=== PATIENT | male | born 1955 | race Caucasian/White ===

== ENCOUNTER → 2016-09-16 | Outpatient (CLI) | payer OTHER ==
[~2016-09-16] MED LIST: ALBU0.63 INH; ASPI81TA85 PO; FLOM5CAP PO; LINZ290C PO; LIPI20TA PO; MELO7.5T6 PO; NAPR500T2 PO; OMEP40CA2 PO; ZOFR20TA PO
--- NOTE | 2016-09-17 02:12 | REP ---
Clinical: Chest pain. Technique: PA and lateral. Comparison: 03/13/2015. Findings: Mediastinum and cardiac silhouette are stable. Lung varghese demonstrate stable chronic-appearing changes. No focal consolidation. No effusion or pneumothorax. Skeletal structures intact. Impression: Chronic stable changes. No acute cardiopulmonary process identified. Signed by Oj Villafana MD 09/17/2016 02:03 A
== END ==
LOC: M LAB 13:21
PROVIDERS: ATTEND Family Medicine
DX: J98.4 Other disorders of lung (principal)

== ENCOUNTER → 2016-09-19 | Outpatient (CLI) | payer OTHER ==
[~2016-09-19] VITALS: Ht 188 cm; Wt 93.0 kg
[~2016-09-19] MED LIST changes: +NS 1,000 ML IV SCH; +PROPOFOL 200 MG/20 ML VIAL As Ordered ONE
--- NOTE | 2016-09-19 09:25 | ROOR ---
Patient Name: Orville Mejia Procedure Date: 09/19/2016 9:13 AM Date of : 1955 Age: 61 Room: [facility] Gender: Male Note Status: Finalized Procedure: Upper GI endoscopy Indications: Abdominal pain, Weight loss Providers: Keith ALCAZAR MD Referring MD: Gregory Baez MD Requesting Provider: Medicines: Monitored Anesthesia Care Complications: No immediate complications. Procedure: Pre-Anesthesia Assessment: - The heart rate, respiratory rate, oxygen saturations, blood pressure, adequacy of pulmonary ventilation, and response to care were monitored throughout the procedure. The Endoscope was introduced through the mouth, and advanced to the second part of duodenum. The upper GI endoscopy was accomplished without difficulty. The patient tolerated the procedure well. Findings: Small Hiatal Hernia. The esophagus was normal. The stomach was normal. The examined duodenum was normal. Impression: - Small Hiatal Hernia. - Normal esophagus. - Normal stomach. - Normal examined duodenum. - No specimens collected. Recommendation: - Observe patient's clinical course. Keith Alcazar MD Keith ALCAZAR MD 09/19/2016 9:25:32 AM This report has been signed electronically. Number of Addenda: 0 Note Initiated On: 09/19/2016 9:13 AM Estimated Blood Loss: Estimated blood loss: none.
--- NOTE | 2016-09-19 09:57 | ROOR ---
Patient Name: Orville Mejia Procedure Date: 09/19/2016 9:15 AM Date of : 1955 Age: 61 Room: [facility] Gender: Male Note Status: Finalized Procedure: Colonoscopy Indications: Hematochezia Providers: Keith VALENZUELA MD Referring MD: Gregory Baez MD Requesting Provider: Medicines: Monitored Anesthesia Care Complications: No immediate complications. Procedure: Pre-Anesthesia Assessment: - The heart rate, respiratory rate, oxygen saturations, blood pressure, adequacy of pulmonary ventilation, and response to care were monitored throughout the procedure. The Colonoscope was introduced through the anus and advanced to the cecum, identified by appendiceal orifice and ileocecal valve. The colonoscopy was performed without difficulty. The patient tolerated the procedure well. The quality of the bowel preparation was good. Findings: The perianal and digital rectal examinations were normal. (Exam: Complete, Prep: Good or Excellent.) A 10 mm polyp was found in the proximal ascending colon. The polyp was carpet-like. The polyp was removed with a piecemeal technique using a cold snare. Polyp resection was incomplete. The resected tissue was retrieved. Coagulation for tissue destruction using argon plasma at 0.8 liters/minute and 20 sales was successful. Internal hemorrhoids were found during retroflexion. The hemorrhoids were moderate. The exam was otherwise without abnormality on direct and retroflexion views. Impression: - (Exam: Complete, Prep: Good or Excellent.) - One 10 mm polyp in the proximal ascending colon, removed piecemeal using a cold snare. Incomplete resection. Resected tissue retrieved. Treated with argon plasma coagulation (APC). - Internal hemorrhoids. - The examination was otherwise normal on direct and retroflexion views. Recommendation: - Await pathology results. - If the pathology report reveals adenomatous tissue, then repeat the colonoscopy to review the polypectomy site in 1 year. Keith Valenzuela MD Keith VALENZUELA MD 09/19/2016 9:57:01 AM This report has been signed electronically. Number of Addenda: 0 Note Initiated On: 09/19/2016 9:15 AM Estimated Blood Loss: Estimated blood loss: none.
[2016-09-19 10:20] VITALS: BP 105/78
== END | disposition home or self-care (01) ==
LOC: M OPP 07:35
PROVIDERS: ATTEND Internal Medicine Gastroenterology
DX: D12.2 Benign neoplasm of ascending colon (principal); R10.9 Unspecified abdominal pain; K44.9 Diaphragmatic hernia without obstruction or gangrene; E78.00 Pure hypercholesterolemia, unspecified; R12 Heartburn; D64.9 Anemia, unspecified; J44.9 Chronic obstructive pulmonary disease, unspecified; N28.1 Cyst of kidney, acquired; Z87.891 Personal history of nicotine dependence; F10.21 Alcohol dependence, in remission; Z79.82 Long term (current) use of aspirin; Z79.899 Other long term (current) drug therapy; Z88.0 Allergy status to penicillin; Z91.041 Radiographic dye allergy status

== ENCOUNTER → 2016-11-20 | Outpatient (CLI) | payer OTHER ==
[~2016-11-20] MED LIST changes: -NS 1,000 ML IV SCH; -PROPOFOL 200 MG/20 ML VIAL As Ordered ONE
== END ==
LOC: M LAB 12:47
PROVIDERS: ATTEND Family Medicine
DX: Z12.5 Encounter for screening for malignant neoplasm of prostate (principal); N40.0 Benign prostatic hyperplasia without lower urinary tract symptoms
CPT/HCPCS: 36415; G0103

== ENCOUNTER → 2016-12-25 | Outpatient (REF) | payer OTHER | LOC: M LAB REF 17:08 | PROVIDERS: ATTEND Surgery | DX: D17.1 Benign lipomatous neoplasm of skin and subcutaneous tissue of trunk (principal) ==

== ENCOUNTER 2017-03-31 14:43 | Emergency (ER) | payer OTHER ==
[~2017-03-31] VITALS: Ht 188 cm; Wt 93.1 kg
[~2017-03-31 14:43] MED LIST changes: -MELO7.5T6 PO; +MELO7.5T7 PO; -NAPR500T2 PO; +NAPR500T3 PO
[2017-03-31 17:43] LABS: BASO % 0.7 % (0.0-1.0); EOS # 0.1 K/mm3 (0.0-0.50); EOS % 1.1 % (0.0-3.0); LARGE UNSTAINED CELL # 0.2 K/mm3 (0.0-0.4); LARGE UNSTAINED CELL % 1.8 % (0.0-4.0); LYMPH # 2.6 K/mm3 (1.5-4.5); LYMPH % 32.9 % (24.0-44.0); MEAN CORPUSCULAR HEMOGLOBIN 31.3 pg (27.0-33.0); MEAN CORPUSCULAR HGB CONC 34.5 g/dl (32.0-36.5); MEAN CORPUSCULAR VOLUME 90.9 fl (80.0-96.0); MONO # 0.4 K/mm3 (0.0-0.8); MONO % 5.3 % (0.0-5.0); NEUTROPHILS # 4.6 K/mm3 (1.8-7.7); NEUTROPHILS % 58.1 % (36.0-66.0); PLATELET COUNT, AUTOMATED 157 k/mm3 (150-450); RED CELL DISTRIBUTION WIDTH 12.8 % (11.5-14.5); WHITE BLOOD COUNT 7.9 K/mm3 (4.0-10.0)
--- NOTE | 2017-03-31 17:50 | REP ---
Chest one-view HISTORY: Chest pain Comparison: 09/16/2016 The lungs are clear. The heart is normal in size. The pulmonary vasculature is normal in appearance. Impression: No acute disease. Signed by Noah Greenwood MD 03/31/2017 05:41 P
[2017-03-31 17:51] LABS: ALBUMIN 3.5 GM/DL (3.2-5.2); ALKALINE PHOSPHATASE 49 U/L (45-117); ALT/SGPT 22 U/L (12-78); ANION GAP 7 MEQ/L (8-16); AST/SGOT 17 U/L (15-37); BILIRUBIN,DIRECT 0.1 MG/DL (0.0-0.2); BILIRUBIN,TOTAL 0.4 MG/DL (0.2-1.0); BLOOD UREA NITROGEN 11 MG/DL (7-18); CALCIUM LEVEL 8.5 MG/DL (8.8-10.2); CARBON DIOXIDE LEVEL 27 MEQ/L (21-32); CHLORIDE LEVEL 110 MEQ/L (98-107); CREATININE FOR GFR 0.85 MG/DL (0.70-1.30); GLOMERULAR FILTRATION RATE > 60.0 (>49); GLUCOSE, FASTING 91 MG/DL (80-110); POTASSIUM SERUM 3.7 MEQ/L (3.5-5.1); SODIUM LEVEL 144 MEQ/L (136-145); TOTAL PROTEIN 6.2 GM/DL (6.4-8.2)
--- NOTE | 2017-03-31 20:00 | REPUSA ---
CLINICAL HISTORY: Abdominal pain. TECHNIQUE: Realtime sonographic images were obtained in multiple projections. COMMENTS: The liver is of normal size, parenchyma demonstrates normal echogenicity. 2.5 cm right hepatic lobe c yst is seen. No discrete hepatic mass is seen. There is no intra or extrahepatic biliary ductal dilatation. CBD measures 5 mm. The gallbladder is ph ysiologically distended without evidence of calculi. The gallbladder wall is not thickened and there is no pericholecystic fluid. There is no abdominal ascites. The right kidney measures 10.8 cm, free of hydronephrosis. 5.7 x 3.6 cm cyst is noted in the upper p ole. IMPRESSION: Hepatic and renal cysts. No acute pathology. Thank you for your kind referral of this patient.
[2017-03-31 21:02] VITALS: BP 125/72
--- NOTE | 2017-04-01 10:35 | ECGEPIP ---
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
== END 2017-03-31 21:10 | disposition home or self-care (01) ==
LOC: M ED 14:43
DX: K85.90 Acute pancreatitis without necrosis or infection, unspecified (principal); I10 Essential (primary) hypertension; E78.5 Hyperlipidemia, unspecified; J44.9 Chronic obstructive pulmonary disease, unspecified; F17.210 Nicotine dependence, cigarettes, uncomplicated; Z79.82 Long term (current) use of aspirin; Z91.041 Radiographic dye allergy status; Z88.0 Allergy status to penicillin

== ENCOUNTER → 2017-04-04 | Outpatient (CLI) | payer OTHER ==
[2017-04-04 15:26] LABS: ALBUMIN 3.9 GM/DL (3.2-5.2); ALBUMIN/GLOBULIN RATIO 1.18 (1.00-1.93); ALKALINE PHOSPHATASE 56 U/L (45-117); ALT/SGPT 25 U/L (12-78); AMYLASE 173 U/L (25-115); ANION GAP 5 MEQ/L (8-16); AST/SGOT 18 U/L (15-37); BILIRUBIN,TOTAL 0.5 MG/DL (0.2-1.0); BLOOD UREA NITROGEN 11 MG/DL (7-18); CALCIUM LEVEL 9.3 MG/DL (8.8-10.2); CARBON DIOXIDE LEVEL 31 MEQ/L (21-32); CHLORIDE LEVEL 105 MEQ/L (98-107); CREATININE FOR GFR 1.01 MG/DL (0.70-1.30); GLOMERULAR FILTRATION RATE > 60.0 (>49); GLUCOSE, FASTING 79 MG/DL (80-110); POTASSIUM SERUM 4.4 MEQ/L (3.5-5.1); SODIUM LEVEL 141 MEQ/L (136-145); TOTAL PROTEIN 7.2 GM/DL (6.4-8.2)
[2017-04-04 15:30] LABS: BASO % 0.6 % (0.0-1.0); EOS # 0.1 K/mm3 (0.0-0.50); EOS % 0.7 % (0.0-3.0); LARGE UNSTAINED CELL # 0.2 K/mm3 (0.0-0.4); LARGE UNSTAINED CELL % 2.3 % (0.0-4.0); LYMPH # 3.2 K/mm3 (1.5-4.5); MEAN CORPUSCULAR HGB CONC 34.1 g/dl (32.0-36.5); MEAN CORPUSCULAR VOLUME 90.7 fl (80.0-96.0); MONO # 0.5 K/mm3 (0.0-0.8); MONO % 6.3 % (0.0-5.0); NEUTROPHILS # 4.5 K/mm3 (1.8-7.7); NEUTROPHILS % 54.2 % (36.0-66.0); PLATELET COUNT, AUTOMATED 148 k/mm3 (150-450); RED CELL DISTRIBUTION WIDTH 12.9 % (11.5-14.5); WHITE BLOOD COUNT 8.4 K/mm3 (4.0-10.0)
== END ==
LOC: M LAB 14:23
PROVIDERS: ATTEND Physician Assistant Medical
DX: R10.10 Upper abdominal pain, unspecified (principal)

== ENCOUNTER → 2017-05-01 | Outpatient (CLI) | payer OTHER ==
--- NOTE | 2017-05-01 13:39 | REP ---
MRCP EXAMINATION WITHOUT CONTRAST: HISTORY: Upper abdominal pain. History pancreatitis. Comparison MRI study August 16, 2016. TECHNIQUE: Axial T2 HASTE and coronal T2 TRUE FISP images are acquired. In addition, an MRCP acquisition is acquired and maximum intensity projection images are generated and reviewed rotationally. Source coronal images are also reviewed. MRCP FINDINGS: There are scattered small benign hepatic cysts again noted. The largest of these is near the gallbladder measuring 3.3 cm in greatest diameter. There is a 4.6 cm simple cyst in the upper pole of the right kidney. A smaller subcentimeter cyst is also seen in the right kidney. There is a 2.5 cm T2 hyperintense lesion which appears to project in the lower chest and mediastinum to the right of midline. This is of uncertain significance and is only seen on maximal intensity projection images. It is beyond the field of view of the axial and coronal scans. The common bile duct is normal in caliber. Pancreatic duct is normal in caliber. No stricture or choledocholithiasis is seen. The visualized intrahepatic ducts are not dilated. IMPRESSION: 1. No evidence of biliary ductal stricture dilation or filling defect. 2. Benign hepatic cysts. Some of these are somewhat larger than on prior study. 3. T2 hyperintense 2.5 cm structure projects in the right chest or mediastinum. Uncertain significance. Consider chest CT study. Signed by Jonny Kc MD 05/01/2017 03:59 P
== END ==
LOC: M RAD 11:04
PROVIDERS: ATTEND Physician Assistant Medical
DX: R10.10 Upper abdominal pain, unspecified (principal); R11.0 Nausea; R74.8 Abnormal levels of other serum enzymes

== ENCOUNTER → 2017-05-15 | Outpatient (CLI) | payer OTHER ==
--- NOTE | 2017-05-15 10:41 | REP ---
CT of the chest without IV contrast: Comparisons are the portable chest dated 03/31/2079, PA and lateral chest of 09/16/2016. The patient had recent CT abdomen pelvis dated 08/13/2015 and MRI of the abdomen dated 08/16/2016. There are no infiltrates or effusions. There are no masses or nodules. There are small bulla scattered throughout the lung varghese bilaterally. There is no mediastinal or axillary adenopathy. In the absence of IV contrast the study is insensitive for hilar adenopathy. The thoracic aorta is unremarkable. Cardiac size normal. There is no pericardial effusion. The upper abdomen. There are occasional cysts in the liver in the visualized upper poles of the kidneys, similar to the comparison CT and MRI. Impression: Scattered bulla throughout the lung varghese compatible with bullous emphysema. Hepatic and renal cysts as described. Otherwise, negative CT study of the chest. Signed by Ramon Gannon MD 05/15/2017 10:33 A
== END ==
LOC: M RAD 08:45
PROVIDERS: ATTEND Physician Assistant Medical
DX: R93.3 Abnormal findings on diagnostic imaging of other parts of digestive tract (principal); N28.1 Cyst of kidney, acquired; K76.89 Other specified diseases of liver

== ENCOUNTER 2017-09-02 08:56 | Day surgery (SDC) | payer OTHER ==
[2017-09-02] MEDS: NS 1,000 ML IV (09:00)
[2017-09-02] MEDS ORDERED: fentaNYL 100 MCG/2 ML INJECTION (J3010) As Ordered ×2 (09:22→09:55)
[2017-09-02] MEDS ORDERED: MIDAZOLAM INJ 2 MG/2 ML VIAL (J2250) As Ordered ×4 (09:22→09:44)
== END 2017-09-02 11:01 | disposition home or self-care (01) ==
LOC: M OPP 08:56
DX: Z09 Encounter for follow-up examination after completed treatment for conditions other than malignant neoplasm (principal); D12.5 Benign neoplasm of sigmoid colon; Z86.010 Personal history of colon polyps; Z98.890 Other specified postprocedural states; E78.00 Pure hypercholesterolemia, unspecified; K21.9 Gastro-esophageal reflux disease without esophagitis; J44.9 Chronic obstructive pulmonary disease, unspecified; N28.1 Cyst of kidney, acquired; F17.210 Nicotine dependence, cigarettes, uncomplicated; K85.90 Acute pancreatitis without necrosis or infection, unspecified; Z79.82 Long term (current) use of aspirin; Z79.899 Other long term (current) drug therapy; Z91.041 Radiographic dye allergy status; Z88.0 Allergy status to penicillin; Z88.8 Allergy status to other drugs, medicaments and biological substances
CPT/HCPCS: 45385

== ENCOUNTER → 2018-03-25 | Outpatient (CLI) | payer OTHER ==
[2018-03-25 11:17] LABS: BASO % 0.4 % (0.0-1.0); EOS # 0.1 10^3/uL (0.0-0.50); EOS % 0.9 % (0.0-3.0); HEMATOCRIT 40.7 % (42.0-52.0); HEMOGLOBIN 13.8 g/dl (13.5-17.5); IMMATURE GRANULOCYTE % 0.5 % (0-3.0); LYMPH # 3.3 10^3/uL (1.5-4.5); LYMPH % 33.8 % (24.0-44.0); MEAN CORPUSCULAR HEMOGLOBIN 30.5 pg (27.0-33.0); MEAN CORPUSCULAR HGB CONC 33.9 g/dl (32.0-36.5); MEAN CORPUSCULAR VOLUME 89.8 fl (80.0-96.0); MONO # 0.7 10^3/uL (0.0-0.8); MONO % 7.3 % (0.0-5.0); NEUTROPHILS # 5.6 10^3/uL (1.8-7.7); NEUTROPHILS % 57.1 % (36.0-66.0); PLATELET COUNT, AUTOMATED 150 10^3/uL (150-450); RED BLOOD COUNT 4.53 10^6/uL (4.30-6.10); RED CELL DISTRIBUTION WIDTH 12.4 % (11.5-14.5); WHITE BLOOD COUNT 9.9 10^3/uL (4.0-10.0)
[2018-03-25 11:29] LABS: ALBUMIN 3.5 GM/DL (3.2-5.2); ALBUMIN/GLOBULIN RATIO 1.17 (1.00-1.93); ALKALINE PHOSPHATASE 50 U/L (45-117); ALT/SGPT 22 U/L (12-78); AMYLASE 53 U/L (25-115); ANION GAP 8 MEQ/L (8-16); AST/SGOT 17 U/L (7-37); BILIRUBIN,TOTAL 0.4 MG/DL (0.2-1.0); BLOOD UREA NITROGEN 12 MG/DL (7-18); CALCIUM LEVEL 8.4 MG/DL (8.8-10.2); CARBON DIOXIDE LEVEL 28 MEQ/L (21-32); CHLORIDE LEVEL 108 MEQ/L (98-107); CREATININE FOR GFR 0.89 MG/DL (0.70-1.30); GLOMERULAR FILTRATION RATE > 60.0 (>49); GLUCOSE, FASTING 90 MG/DL (70-100); LIPASE 231 U/L (73-393); POTASSIUM SERUM 3.9 MEQ/L (3.5-5.1); SODIUM LEVEL 144 MEQ/L (136-145); TOTAL PROTEIN 6.5 GM/DL (6.4-8.2)
== END ==
LOC: M LAB 10:44
DX: R10.13 Epigastric pain (principal)
CPT/HCPCS: 82150

== ENCOUNTER → 2018-06-25 | Outpatient (CLI) | payer OTHER ==
[2018-06-25 15:09] LABS: CHOLESTEROL LEVEL 114 MG/DL (<200); CHOLESTEROL RISK RATIO 3.677 (<5); HDL CHOLESTEROL 31 MG/DL (>40); LDL CHOLESTEROL 61 MG/DL (<100); NON-HDL-C 83 MG/DL; PSA SCREENING 2.43 NG/ML (< 4.0); TRIGLYCERIDES LEVEL 112 MG/DL (<150)
== END ==
LOC: M LAB 13:54
DX: Z00.00 Encounter for general adult medical examination without abnormal findings (principal)
CPT/HCPCS: 80061

== ENCOUNTER → 2018-07-13 | Outpatient (REF) | payer OTHER ==
[2018-07-13 19:13] LABS: HEMATOCRIT 41.6 % (42.0-52.0); HEMOGLOBIN 13.6 g/dl (13.5-17.5); MEAN CORPUSCULAR HEMOGLOBIN 29.4 pg (27.0-33.0); MEAN CORPUSCULAR HGB CONC 32.7 g/dl (32.0-36.5); MEAN CORPUSCULAR VOLUME 89.8 fl (80.0-96.0); PLATELET COUNT, AUTOMATED 163 10^3/uL (150-450); RED BLOOD COUNT 4.63 10^6/uL (4.30-6.10); RED CELL DISTRIBUTION WIDTH 12.6 % (11.5-14.5); WHITE BLOOD COUNT 7.5 10^3/uL (4.0-10.0)
== END ==
LOC: M SFHCPLAZ 15:06
DX: R19.5 Other fecal abnormalities (principal)
CPT/HCPCS: 85027

== ENCOUNTER → 2018-07-21 | Outpatient (CLI) | payer OTHER ==
[2018-07-21 10:27] LABS: ANION GAP 7 MEQ/L (8-16); BLOOD UREA NITROGEN 18 MG/DL (7-18); CALCIUM LEVEL 8.6 MG/DL (8.8-10.2); CARBON DIOXIDE LEVEL 26 MEQ/L (21-32); CHLORIDE LEVEL 108 MEQ/L (98-107); CREATININE FOR GFR 1.13 MG/DL (0.70-1.30); GLOMERULAR FILTRATION RATE > 60.0 (>49); GLUCOSE, FASTING 92 MG/DL (70-100); POTASSIUM SERUM 4.1 MEQ/L (3.5-5.1); SODIUM LEVEL 141 MEQ/L (136-145)
== END ==
LOC: M LAB 09:25
DX: T39.391A Poisoning by other nonsteroidal anti-inflammatory drugs [NSAID], accidental (unintentional), initial encounter (principal)
CPT/HCPCS: 72052

== ENCOUNTER → 2018-12-22 | Outpatient (CLI) | payer OTHER ==
[~2018-12-22] MED LIST changes: +FLOM0.4C39 PO; -FLOM5CAP PO; +NAPR-885 PO; -NAPR500T3 PO; +RANI15TA PO; -ZOFR20TA PO; +ZOFR4TAB16 PO
[2018-12-22 16:23] LABS: HEMATOCRIT 39.4 % (42.0-52.0); HEMOGLOBIN 13.7 g/dl (13.5-17.5); MEAN CORPUSCULAR HEMOGLOBIN 30.6 pg (27.0-33.0); MEAN CORPUSCULAR HGB CONC 34.8 g/dl (32.0-36.5); MEAN CORPUSCULAR VOLUME 88.1 fl (80.0-96.0); PLATELET COUNT, AUTOMATED 162 10^3/uL (150-450); RED BLOOD COUNT 4.47 10^6/uL (4.30-6.10); WHITE BLOOD COUNT 8.7 10^3/uL (4.0-10.0)
[2018-12-22 16:49] LABS: ALBUMIN 3.9 GM/DL (3.2-5.2); ALT/SGPT 31 U/L (12-78); AMYLASE 142 U/L (25-115); BILIRUBIN,TOTAL 0.5 MG/DL (0.2-1.0); BLOOD UREA NITROGEN 14 MG/DL (7-18); CALCIUM LEVEL 8.8 MG/DL (8.8-10.2); CARBON DIOXIDE LEVEL 28 MEQ/L (21-32); CHLORIDE LEVEL 106 MEQ/L (98-107); CREATININE FOR GFR 1.12 MG/DL (0.70-1.30); GLOMERULAR FILTRATION RATE > 60.0 (>49); GLUCOSE, FASTING 95 MG/DL (70-100); LIPASE 1360 U/L (73-393); POTASSIUM SERUM 3.8 MEQ/L (3.5-5.1); SODIUM LEVEL 140 MEQ/L (136-145); TOTAL PROTEIN 6.8 GM/DL (6.4-8.2)
== END ==
LOC: M LAB 15:51
PROVIDERS: ATTEND Physician Assistant Medical
DX: Q44.6 Cystic disease of liver (principal); R12 Heartburn; E74.8 Other specified disorders of carbohydrate metabolism

== ENCOUNTER → 2019-01-01 | Outpatient (CLI) | payer OTHER ==
[~2019-01-01] MED LIST changes: +PROHANCE 279.3MG/ML 15ML VIAL (A9576) As Ordered ONE; +PROHANCE 279.3MG/ML 5ML VIAL (A9576) As Ordered ONE
--- NOTE | 2019-01-01 15:33 | REP ---
MRI ABDOMEN WITH AND WITHOUT CONTRAST: TECHNIQUE: Multiple sequences obtained in the axial and coronal planes prior to and following the intravenous administration of 19 mL ProHance. Comparison made with prior study 08/16/2016. The liver again demonstrates multiple cysts which appear essentially unchanged. There are cysts of varying sizes scattered throughout the liver, about eight to ten cysts are visualized. The largest is inferior in the right lobe measuring 2.9 cm in diameter just posterior to the gallbladder. The gallbladder itself demonstrates no filling defect. There is no gallbladder wall edema. There is no biliary dilatation. Spleen is enlarged with a length of 16.1 cm. This has increased since prior study when it was 13.9 cm. Adrenals demonstrate no nodule. The pancreas demonstrates no mass. There is no pancreatic duct dilatation. There is no hydronephrosis of either kidney. A dominant cyst in the upper pole of the right kidney has slightly increased since the prior study. This is benign with no internal enhancement. It measures 4.7 cm in diameter. Previously it measured about 4 cm in diameter. In the medial upper pole right kidney there is a 7 mm cyst. In the lower pole of the right kidney there is a complex cyst, likely hemorrhagic or proteinaceous, measuring 1 cm in diameter. In the left kidney mid aspect medially there is a nonenhancing complex cyst measuring 2 cm in diameter. This has mildly increased in size since prior study when it was 1.2 cm. Again, this is likely proteinaceous or hemorrhagic. There is no significant enhancement. Exophytic cyst is seen of the lower pole of the left kidney posteriorly measuring 1.2 cm. No adenopathy is seen in the visualized abdomen and there is no evidence of free fluid. IMPRESSION: Multiple stable liver cysts. The largest is in the inferior right lobe measuring about 2.9 to 3 cm in maximum diameter. Increased mild splenomegaly with the length of the spleen approximately 16.1 cm. Bilateral renal cysts as discussed above have mildly increased in size since prior study. There is one complex cyst in each kidney which appears to be hemorrhagic or proteinaceous, but these do not demonstrate suspicious enhancement. Electronically Signed by Ramon Vickers MD 01/06/2019 11:43 A
== END ==
LOC: M RAD 09:26
PROVIDERS: ATTEND Physician Assistant Medical
DX: Q44.6 Cystic disease of liver (principal); R16.1 Splenomegaly, not elsewhere classified; N28.1 Cyst of kidney, acquired
CPT/HCPCS: 74183; A9576

== ENCOUNTER → 2019-05-04 | Outpatient (CLI) | payer OTHER ==
[~2019-05-04] MED LIST changes: -PROHANCE 279.3MG/ML 15ML VIAL (A9576) As Ordered ONE; -PROHANCE 279.3MG/ML 5ML VIAL (A9576) As Ordered ONE
[2019-05-04 15:13] LABS: HEMATOCRIT 43.5 % (42.0-52.0); HEMOGLOBIN 14.7 g/dl (13.5-17.5); MEAN CORPUSCULAR HGB CONC 33.8 g/dl (32.0-36.5); MEAN CORPUSCULAR VOLUME 91.8 fl (80.0-96.0); PLATELET COUNT, AUTOMATED 162 10^3/uL (150-450); RED BLOOD COUNT 4.74 10^6/uL (4.30-6.10); WHITE BLOOD COUNT 9.1 10^3/uL (4.0-10.0)
[2019-05-04 15:35] LABS: MONO SCRN NEGATIVE (NEGATIVE)
[2019-05-04 15:38] LABS: ALBUMIN 4.1 GM/DL (3.2-5.2); ALT/SGPT 29 U/L (12-78); AMYLASE 58 U/L (25-115); BILIRUBIN,TOTAL 0.4 MG/DL (0.2-1.0); BLOOD UREA NITROGEN 11 MG/DL (7-18); CALCIUM LEVEL 9.5 MG/DL (8.8-10.2); CARBON DIOXIDE LEVEL 30 MEQ/L (21-32); CHLORIDE LEVEL 108 MEQ/L (98-107); CREATININE FOR GFR 0.98 MG/DL (0.70-1.30); GLOMERULAR FILTRATION RATE > 60.0 (>49); GLUCOSE, FASTING 93 MG/DL (70-100); LIPASE 171 U/L (73-393); POTASSIUM SERUM 4.3 MEQ/L (3.5-5.1); SODIUM LEVEL 143 MEQ/L (136-145); TOTAL PROTEIN 7.3 GM/DL (6.4-8.2)
== END ==
LOC: M LAB 14:37
PROVIDERS: ATTEND Internal Medicine Gastroenterology
DX: K21.9 Gastro-esophageal reflux disease without esophagitis (principal)

== ENCOUNTER → 2019-05-07 | Outpatient (CLI) | payer OTHER ==
[~2019-05-07] MED LIST changes: +E-Z-GAS II EFFERVESCENT PACKET (SODIUM BICARB./CITRIC ACID/SIMETHICONE) As Ordered ONE; +E-Z-HD 98% w/w 340GM SUSP BTL As Ordered ONE; +E-Z-PAQUE 96% w/w SUSP 176GM BTL As Ordered ONE
--- NOTE | 2019-05-07 16:37 | REP ---
UPPER GI AIR CONTRAST AND SMALL BOWEL FOLLOW THROUGH The procedure was performed under the direct supervision of Dr. Kc. The images were reviewed with Dr. Kc The medical sales associate film shows no organomegaly or pathological masses. The intestinal gas pattern is non-specific. Liquid barium and gas producing crystals were given in the erect position as well as liquid barium in the prone oblique position in order to perform a double contrast upper GI examination. Additionally liquid barium was given at the end of the examination in order to perform a small bowel follow through. The oral and pharyngeal stages of deglutition are unremarkable. Esophageal transport is prompt and efficient and there is no esophagitis, stricture or mucosal ring. There is a small sliding type hiatal hernia. Gastroesophageal reflux is not demonstrated on this examination. Note is made of surgical sutures in the left lung apex. The stomach izquierdo are normally outlined . The rugal folds are smooth and regular. There is no gastritis neoplasm or ulcer disease. In the duodenum there are thickened folds which likely represents duodenitis. There is no vernon ulcer identified. The visualized portion of the proximal small bowel appears normal in course and caliber. The barium column was followed through the small bowel to the level of the terminal ileum. Small bowel transit time is approximately 60 minutes . During fluoroscopy gentle palpation shows all loops are freely movable and pliable. There are no fixed or angulated loops. The small bowel mucosal pattern is normal in course and caliber. There is no transition to suggest a partial small-bowel obstruction. Spot filming of the terminal ileum shows it to be unremarkable. Impression: There are thickened folds in the duodenum which likely represents duodenitis. There is no vernon ulcer identified. Otherwise, unremarkable double contrast upper GI and small bowel follow-through examination. 3.6 minutes of fluoro time was utilized for this procedure. Electronically Signed by MARCELLUS Vaughan 05/07/2019 04:17 P Electronically Signed by Jonny Kc MD 05/07/2019 04:28 P
== END ==
LOC: M RAD 07:59
DX: K21.9 Gastro-esophageal reflux disease without esophagitis (principal)

== ENCOUNTER → 2019-05-19 | Outpatient (CLI) | payer OTHER ==
[~2019-05-19] MED LIST changes: -E-Z-GAS II EFFERVESCENT PACKET (SODIUM BICARB./CITRIC ACID/SIMETHICONE) As Ordered ONE; -E-Z-HD 98% w/w 340GM SUSP BTL As Ordered ONE; -E-Z-PAQUE 96% w/w SUSP 176GM BTL As Ordered ONE
[2019-05-19 15:45] LABS: BASO # 0.1 10^3/uL (0.0-0.2); BASO % 0.5 % (0.0-1.0); EOS # 0.1 10^3/uL (0.0-0.5); EOS % 0.6 % (0.0-3.0); HEMATOCRIT 40.9 % (42.0-52.0); HEMOGLOBIN 13.7 g/dl (13.5-17.5); LYMPH # 2.6 10^3/uL (1.5-5.0); LYMPH % 27.4 % (24.0-44.0); MEAN CORPUSCULAR HEMOGLOBIN 30.2 pg (27.0-33.0); MEAN CORPUSCULAR HGB CONC 33.5 g/dl (32.0-36.5); MEAN CORPUSCULAR VOLUME 90.3 fl (80.0-96.0); MONO # 0.6 10^3/uL (0.0-0.8); MONO % 6.4 % (0.0-5.0); NEUTROPHILS # 6.2 10^3/uL (1.5-8.5); NEUTROPHILS % 64.7 % (36.0-66.0); PLATELET COUNT, AUTOMATED 165 10^3/uL (150-450); RED BLOOD COUNT 4.53 10^6/uL (4.30-6.10); WHITE BLOOD COUNT 9.6 10^3/uL (4.0-10.0)
[2019-05-19 16:01] LABS: ALBUMIN 3.6 GM/DL (3.2-5.2); ALT/SGPT 25 U/L (12-78); BILIRUBIN,TOTAL 0.3 MG/DL (0.2-1.0); BLOOD UREA NITROGEN 15 MG/DL (7-18); CALCIUM LEVEL 8.9 MG/DL (8.8-10.2); CARBON DIOXIDE LEVEL 28 MEQ/L (21-32); CHLORIDE LEVEL 106 MEQ/L (98-107); CREATININE FOR GFR 1.03 MG/DL (0.70-1.30); GLOMERULAR FILTRATION RATE > 60.0 (>49); GLUCOSE, FASTING 95 MG/DL (70-100); POTASSIUM SERUM 4.5 MEQ/L (3.5-5.1); SODIUM LEVEL 141 MEQ/L (136-145); TOTAL PROTEIN 6.6 GM/DL (6.4-8.2)
--- NOTE | 2019-05-20 21:12 | ECGEPIP ---
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
== END ==
LOC: M LAB 14:56
PROVIDERS: ATTEND Internal Medicine Gastroenterology
DX: K86.1 Other chronic pancreatitis (principal); K92.1 Melena; R10.12 Left upper quadrant pain

== ENCOUNTER 2019-07-05 17:46 | Emergency (ER) | payer OTHER ==
[~2019-07-05] VITALS: Ht 188 cm; Wt 96.2 kg
[~2019-07-05 17:46] MED LIST changes: -OMEP40CA2 PO; +OMEP40CA97 PO
[2019-07-05 18:15] LABS: BASO % 0.5 % (0.0-1.0); EOS # 0.1 10^3/uL (0.0-0.5); HEMATOCRIT 44.2 % (42.0-52.0); HEMOGLOBIN 14.8 g/dl (13.5-17.5); LYMPH # 3.3 10^3/uL (1.5-5.0); LYMPH % 37.7 % (24.0-44.0); MEAN CORPUSCULAR HEMOGLOBIN 30.1 pg (27.0-33.0); MEAN CORPUSCULAR HGB CONC 33.5 g/dl (32.0-36.5); MONO # 0.6 10^3/uL (0.0-0.8); MONO % 6.9 % (0.0-5.0); NEUTROPHILS # 4.6 10^3/uL (1.5-8.5); NEUTROPHILS % 53.3 % (36.0-66.0); PLATELET COUNT, AUTOMATED 150 10^3/uL (150-450); RED BLOOD COUNT 4.91 10^6/uL (4.30-6.10); WHITE BLOOD COUNT 8.7 10^3/uL (4.0-10.0)
[2019-07-05] MEDS ORDERED: METOCLOPRAMIDE INJ 10MG/2ML VIAL (J2765) IV ONE (18:15)
[2019-07-05] MEDS ORDERED: KETOROLAC 30 MG/ML VIAL (J1885) IV ONE (18:15)
--- NOTE | 2019-07-05 18:30 | REP ---
Single view chest: 07/05/2019. Indication: Chest pain. Comparison: Chest x-ray dated 03/31/[address] chest dated 05/15/2017. Findings: The lungs are clear. There is no pleural effusion or pneumothorax. The cardiac silhouette is not enlarged. Chronic interstitial fibrosis is present. Impression: No acute cardiopulmonary process. Electronically Signed by Scott Smart DO 07/05/2019 06:21 P
[2019-07-05 18:42] LABS: ALBUMIN 3.9 GM/DL (3.2-5.2); ALT/SGPT 26 U/L (12-78); BILIRUBIN,DIRECT < 0.1 MG/DL (0.0-0.2); BILIRUBIN,TOTAL 0.5 MG/DL (0.2-1.0); BLOOD UREA NITROGEN 15 MG/DL (7-18); CALCIUM LEVEL 9.1 MG/DL (8.8-10.2); CARBON DIOXIDE LEVEL 26 MEQ/L (21-32); CHLORIDE LEVEL 111 MEQ/L (98-107); CK-MB VALUE MASS < 1.0 NG/ML (<3.6); CPK CREATINE PHOSPHOKINASE 99 U/L (39-308); CREATININE FOR GFR 1.03 MG/DL (0.70-1.30); GLOMERULAR FILTRATION RATE > 60.0 (>49); GLUCOSE, FASTING 93 MG/DL (70-100); LIPASE 652 U/L (73-393); MB/CK RELATIVE INDEX 1.01 (< OR =4); POTASSIUM SERUM 3.8 MEQ/L (3.5-5.1); SODIUM LEVEL 141 MEQ/L (136-145); TOTAL PROTEIN 7.2 GM/DL (6.4-8.2); TROPONIN I < 0.02 NG/ML (< 0.10)
[2019-07-05] MEDS ORDERED: ZOFR4TAB16 PO (19:17)
[2019-07-05] MEDS ORDERED: NORC1TAB7 PO (19:17)
[2019-07-05] MEDS ORDERED: NORCO 5/325MG TABLET (BULK FOR ED) PO ONE (19:30)
[2019-07-05 19:47] VITALS: BP 125/78
--- NOTE | 2019-07-06 07:57 | ECGEPIP ---
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
== END 2019-07-05 19:48 | disposition home or self-care (01) ==
LOC: M ED 17:46
DX: K86.1 Other chronic pancreatitis (principal); E78.5 Hyperlipidemia, unspecified; K21.9 Gastro-esophageal reflux disease without esophagitis; F17.200 Nicotine dependence, unspecified, uncomplicated; Z79.899 Other long term (current) drug therapy; Z91.040 Latex allergy status; Z88.0 Allergy status to penicillin; Z88.4 Allergy status to anesthetic agent
CPT/HCPCS: 36415; 71045; 80048; 80076; 82550; 82553; 83690; 85025; 93005; 93041; 94760; 96374; 96375; 99285; J1885; J2765

== ENCOUNTER → 2019-10-05 | Outpatient (CLI) | payer OTHER ==
[~2019-10-05] MED LIST changes: +NORC1TAB7 PO
--- NOTE | 2019-10-05 11:40 | REP ---
Clinical: Stage II chronic renal disease. Technique: Real time topete scale ultrasound examination using curved array transducer. Findings: Kidneys demonstrate increased central sinus fat without hydronephrosis, obvious nephrolithiasis, or mass lesion. The right kidney measures 11.2 x 6.4 x 6.6 cm and includes 5.5 cm upper pole simple cyst and 9 mm hyperechoic focus in the mid kidney which is consistent with complex proteinaceous cyst based on findings on MRI dated 01/01/2019. The left kidney measures 11.9 x 7.5 x 6.1 cm and includes 2.7 cm peripelvic cyst. Impression: Chronic renal disease. Simple and complex cysts confirmed by recent MRI dated 01/01/2019. Electronically Signed by Oj Villafana MD 10/05/2019 11:32 A
== END ==
LOC: M RAD 10:25
PROVIDERS: ATTEND Internal Medicine Nephrology
DX: N18.2 Chronic kidney disease, stage 2 (mild) (principal); N28.1 Cyst of kidney, acquired

== ENCOUNTER → 2020-01-25 | Outpatient (CLI) | payer OTHER ==
[~2020-01-25] MED LIST changes: +FAMO1TAB11 PO; +PANT20TA2 PO; +TAMS1CAP17 PO
--- NOTE | 2020-01-25 19:20 | REP ---
Clinical: Cystic liver disease. Technique: Real time topete scale ultrasound examination using curved array transducer. Comparison: 03/31/2017. MRI dated 01/01/2019. Findings: The liver includes 1.7 cm left lobe cyst, 3.5 cm septated right lobe cyst, and 1.0 cm septated right lobe cyst which are stable compared to MRI dated 2019. The pancreas is incompletely evaluated due to interposed bowel gas but visualized portions appear normal. Gallbladder demonstrates small gallstones without wall thickening or pericholecystic fluid. No biliary ductal dilatation is appreciated and the common bile duct measures 5 mm diameter. The right kidney measures 11.4 x 5.8 x 7.2 cm without hydronephrosis and includes stable simple 6.0 cm upper pole cyst. No ascites in the visualized right upper quadrant. Impression: 1. Few hepatic cysts appear relatively benign. 2. Cholelithiasis. 3. 6 cm simple upper pole right renal cyst. Electronically Signed by Oj Villafana MD 01/25/2020 07:12 P
== END ==
LOC: M RAD 08:09
PROVIDERS: ATTEND Physician Assistant Medical
DX: Q44.6 Cystic disease of liver (principal); K80.20 Calculus of gallbladder without cholecystitis without obstruction; N28.1 Cyst of kidney, acquired

== ENCOUNTER → 2020-02-29 | Outpatient (CLI) | payer OTHER ==
[~2020-02-29] MED LIST changes: -ASPI81TA85 PO; +ASPI81TA86 PO; -PANT20TA2 PO; +PANT20TA6 PO
[2020-02-29 14:53] LABS: BASO % 0.5 % (0.0-1.0); EOS % 0.5 % (0.0-3.0); HEMATOCRIT 42.4 % (42.0-52.0); HEMOGLOBIN 14.1 g/dl (13.5-17.5); LYMPH # 2.8 10^3/uL (1.5-5.0); MEAN CORPUSCULAR HGB CONC 33.3 g/dl (32.0-36.5); MEAN CORPUSCULAR VOLUME 90.2 fl (80.0-96.0); MONO # 0.6 10^3/uL (0.0-0.8); MONO % 7.1 % (0.0-5.0); NEUTROPHILS # 4.8 10^3/uL (1.5-8.5); NEUTROPHILS % 57.4 % (36.0-66.0); PLATELET COUNT, AUTOMATED 150 10^3/uL (150-450); WHITE BLOOD COUNT 8.3 10^3/uL (4.0-10.0)
[2020-02-29 15:31] LABS: ALBUMIN 3.8 GM/DL (3.2-5.2); ALT/SGPT 22 U/L (12-78); AMYLASE 120 U/L (25-115); BILIRUBIN,DIRECT 0.1 MG/DL (0.0-0.2); BILIRUBIN,TOTAL 0.4 MG/DL (0.2-1.0); BLOOD UREA NITROGEN 14 MG/DL (7-18); CALCIUM LEVEL 8.9 MG/DL (8.8-10.2); CARBON DIOXIDE LEVEL 29 MEQ/L (21-32); CHLORIDE LEVEL 108 MEQ/L (98-107); GLOMERULAR FILTRATION RATE > 60.0 (>49); GLUCOSE, FASTING 97 MG/DL (70-100); IRON (FE) 85 UG/DL (65-175); LIPASE 956 U/L (73-393); POTASSIUM SERUM 4.5 MEQ/L (3.5-5.1); SODIUM LEVEL 141 MEQ/L (136-145)
== END ==
LOC: M LAB 14:02
PROVIDERS: ATTEND Nurse Practitioner Critical Care Medicine
DX: K86.1 Other chronic pancreatitis (principal)

== ENCOUNTER → 2020-03-20 | Outpatient (CLI) | payer OTHER ==
--- NOTE | 2020-05-18 11:34 | REP ---
HEPATOBILIARY NUCLEAR SCINTIGRAPHY WITH GALLBLADDER EMPTYING, GALLBLADDER EJECTION FRACTION: HISTORY: Abdominal pain and tightening, nausea and vomiting. TECHNIQUE: 6.6 mCi of Technectium-99 Mebrofenin is injected and sequential anterior abdominal images are acquired. At 60 minutes post injection, the patient ingested 8 ounces of Ensure orally and additional imaging was acquired. Regions of interest are drawn around the gallbladder for gallbladder ejection fraction calculation. SCINTOGRAPHIC FINDINGS: The initial hepatocellular parenchymal uptake phase is normal and homogeneous. Intrahepatic and extrahepatic bile ducts are labeled at 10 minutes along with the gallbladder. Subsequent images demonstrate a washout from the liver parenchyma into the small intestine. The gallbladder ejection fraction is 66%. Values greater than 35% are normal. IMPRESSION: Normal hepatobiliary scan and gallbladder ejection fraction. MTDD
== END ==
LOC: M RAD 07:45
PROVIDERS: ATTEND Internal Medicine Gastroenterology
DX: K86.1 Other chronic pancreatitis (principal); K80.81 Other cholelithiasis with obstruction

== ENCOUNTER 2020-04-06 00:55 | Emergency (ER) | payer OTHER ==
[~2020-04-06 00:55] MED LIST changes: +MORPHINE 4 MG/ML 1ML VIAL/SYRINGE (J2270) As Ordered ONE; +MORPHINE 4 MG/ML 1ML VIAL/SYRINGE (J2270) ONE; +ONDANSETRON 4MG/2ML VIAL As Ordered ONE; +ONDANSETRON 4MG/2ML VIAL ONE
[2020-04-06] MEDS ORDERED: MORPHINE 4 MG/ML 1ML VIAL/SYRINGE (J2270) ONE (03:46)
[2020-04-06] MEDS ORDERED: OXYCODONE/APAP 5MG/325MG(BULK FOR ED) 1 TABLET ONE (03:46)
[2020-04-06] MEDS ORDERED: MORPHINE 4 MG/ML 1ML VIAL/SYRINGE (J2270) As Ordered ONE (03:46)
[2020-04-06] MEDS ORDERED: OXYCODONE/APAP 5MG/325MG(BULK FOR ED) 1 TABLET As Ordered ONE (05:05)
--- NOTE | 2020-05-12 14:51 | ECGEPIP ---
SINUS RHYTHM IVCD NONSPECIFIC ST & T CHANGE DOWNTIME NO PRIOR AVAILABLE SEE SCANNED DOWNTIME REPORT MTDD
[2020-05-22 02:30] LABS: BASO # 0.1 10^3/uL (0.0-0.2); BASO % 0.6 % (0.0-1.0); EOS # 0.1 10^3/uL (0.0-0.5); EOS % 1.1 % (0.0-3.0); HEMATOCRIT 44.6 % (42.0-52.0); HEMOGLOBIN 14.9 g/dl (13.5-17.5); LYMPH # 3.4 10^3/uL (1.5-5.0); LYMPH % 40.1 % (24.0-44.0); MEAN CORPUSCULAR HEMOGLOBIN 29.7 pg (27.0-33.0); MEAN CORPUSCULAR HGB CONC 33.4 g/dl (32.0-36.5); MONO # 0.6 10^3/uL (0.0-0.8); MONO % 6.8 % (0.0-5.0); NEUTROPHILS # 4.3 10^3/uL (1.5-8.5); PLATELET COUNT, AUTOMATED 161 10^3/uL (150-450); RED BLOOD COUNT 5.01 10^6/uL (4.30-6.10); WHITE BLOOD COUNT 8.4 10^3/uL (4.0-10.0)
[2020-06-30 12:39] LABS: ALBUMIN 3.8 GM/DL (3.2-5.2); ALT/SGPT 20 U/L (12-78); BILIRUBIN,TOTAL 0.4 MG/DL (0.2-1.0); BLOOD UREA NITROGEN 13 MG/DL (7-18); CALCIUM LEVEL 9.1 MG/DL (8.8-10.2); CARBON DIOXIDE LEVEL 28 MEQ/L (21-32); CHLORIDE LEVEL 108 MEQ/L (98-107); CK-MB VALUE MASS < 1.0 NG/ML (<3.6); CPK CREATINE PHOSPHOKINASE 83 U/L (39-308); CREATININE FOR GFR 1.07 MG/DL (0.70-1.30); GLOMERULAR FILTRATION RATE > 60.0 (>49); GLUCOSE, FASTING 82 MG/DL (70-100); LIPASE 507 U/L (73-393); POTASSIUM SERUM 4.1 MEQ/L (3.5-5.1); SODIUM LEVEL 140 MEQ/L (136-145); TOTAL PROTEIN 7.3 GM/DL (6.4-8.2); TROPONIN I < 0.02 NG/ML (< 0.10)
== END 2020-04-06 04:50 | disposition home or self-care (01) ==
LOC: M ED 00:55
DX: K85.10 Biliary acute pancreatitis without necrosis or infection (principal); K80.20 Calculus of gallbladder without cholecystitis without obstruction; F10.10 Alcohol abuse, uncomplicated; F17.200 Nicotine dependence, unspecified, uncomplicated; F12.10 Cannabis abuse, uncomplicated; Z79.899 Other long term (current) drug therapy; Z88.0 Allergy status to penicillin; Z88.8 Allergy status to other drugs, medicaments and biological substances
CPT/HCPCS: 80053; 82550; 82553; 83690; 85025; 93005; 96374; 96375; 96376; 99284; J2270; J2405

== ENCOUNTER → 2020-04-10 | Outpatient (CLI) | payer OTHER ==
[~2020-04-10] MED LIST changes: -MORPHINE 4 MG/ML 1ML VIAL/SYRINGE (J2270) As Ordered ONE; -MORPHINE 4 MG/ML 1ML VIAL/SYRINGE (J2270) ONE; -ONDANSETRON 4MG/2ML VIAL As Ordered ONE; -ONDANSETRON 4MG/2ML VIAL ONE
--- NOTE | 2020-05-18 11:28 | REP ---
URINARY TRACT ULTRASOUND HISTORY: Chronic kidney disease stage 2. Renal cyst, liver cyst. COMPARISON: Hepatic and renal sonography from 01/25/2020 and 10/05/2019 respectively. FINDINGS: Scanning at the level of the urinary bladder demonstrates a calculated bladder volume of 30.2 mL. Bladder izquierdo are smooth as visualized. The bladder floor is elevated by some prostate enlargement. Renal cortical echogenicity pattern is normal. There is no evidence of hydronephrosis on either side. There is a 2.5 x 2.2 x 2.1 cm cyst in the left mid kidney. There is an upper pole cyst on the right measuring 6.0 x 4.6 x 4.3 cm. This appears to be a simple cyst as well. There is a hyperechoic area in the mid pole on the right measuring 1.1 cm in greatest diameter. This is unchanged from the comparison study. IMPRESSION: Bilateral renal cysts again noted unchanged from the comparison study. MTDD
== END ==
LOC: M RAD 08:00
PROVIDERS: ATTEND Internal Medicine Nephrology
DX: N18.2 Chronic kidney disease, stage 2 (mild) (principal); N28.1 Cyst of kidney, acquired; Q44.6 Cystic disease of liver

== ENCOUNTER → 2020-09-05 | Outpatient (CLI) | payer OTHER ==
[2020-09-05 10:45] LABS: BASO # 0.1 10^3/uL (0.0-0.2); BASO % 0.6 % (0.0-1.0); EOS # 0.1 10^3/uL (0.0-0.5); EOS % 1.3 % (0.0-3.0); HEMOGLOBIN 13.5 g/dl (13.5-17.5); LYMPH # 3.7 10^3/uL (1.5-5.0); LYMPH % 40.1 % (24.0-44.0); MEAN CORPUSCULAR HGB CONC 32.1 g/dl (32.0-36.5); MEAN CORPUSCULAR VOLUME 90.3 fl (80.0-96.0); MONO # 0.8 10^3/uL (0.0-0.8); MONO % 8.1 % (0.0-5.0); NEUTROPHILS # 4.6 10^3/uL (1.5-8.5); NEUTROPHILS % 49.3 % (36.0-66.0); PLATELET COUNT, AUTOMATED 157 10^3/uL (150-450); RED BLOOD COUNT 4.65 10^6/uL (4.30-6.10); WHITE BLOOD COUNT 9.3 10^3/uL (4.0-10.0)
[2020-09-05 11:20] LABS: ALBUMIN 3.6 GM/DL (3.2-5.2); ALT/SGPT 20 U/L (12-78); BILIRUBIN,TOTAL 0.3 MG/DL (0.2-1.0); BLOOD UREA NITROGEN 17 MG/DL (7-18); CARBON DIOXIDE LEVEL 29 MEQ/L (21-32); CHLORIDE LEVEL 108 MEQ/L (98-107); CREATININE FOR GFR 1.12 MG/DL (0.70-1.30); GLOMERULAR FILTRATION RATE > 60.0 (>49); GLUCOSE, FASTING 89 MG/DL (70-100); SODIUM LEVEL 140 MEQ/L (136-145); TOTAL PROTEIN 6.6 GM/DL (6.4-8.2)
== END ==
LOC: M LAB 10:19
PROVIDERS: ATTEND Physician Assistant Medical
DX: K62.5 Hemorrhage of anus and rectum (principal)

== ENCOUNTER → 2020-09-20 | Outpatient (CLI) | payer OTHER ==
[~2020-09-20] MED LIST changes: +PROHANCE 279.3MG/ML 15ML VIAL As Ordered ONE; +PROHANCE 279.3MG/ML 5ML VIAL As Ordered ONE
--- NOTE | 2020-09-21 09:18 | REP ---
INDICATION: GENERALIZED ABD PAIN, BLOOD IN STOOL. COMPARISON: Comparison MRI pelvis study August 16, 2016. There is a comparison CT study of the abdomen from April 05, 2015. TECHNIQUE: Axial, coronal, and sagittal imaging planes utilized. T1 and T2 weighted scans are included with without fat saturation. Diffusion-weighted scans and postcontrast images are included. Gadolinium enhancement dose is 18 mL of intravenous ProHance.. FINDINGS: Cortical and medullary bone signal intensity are normal in the bony pelvis and proximal femurs bilaterally. No sacral lesion is seen. The lumbosacral thecal sac does not appear to be compressed. There are degenerative disc changes visible at L5-S1 with a 9 mm grade 1 spondylolisthesis. There appear to be bilateral L5 pars defects. These findings are unchanged. There is no evidence of pelvic mass or adenopathy. No presacral soft tissue lesion is seen. Mild prominence in cystic change noted in the prostate. Seminal vesicles and urinary bladder are unremarkable. Visualized bowel loops show no abnormality. Postcontrast study shows no notable or normal gadolinium enhancement. Diffusion-weighted scans show no focal area of restricted diffusion to suggest neoplasm. No vascular abnormality is seen. IMPRESSION: No acute abnormality noted. Mildly prominent prostate. Bilateral L5 spondylolysis and stable 9 mm grade 1 L5-S1 spondylolisthesis. <Electronically signed by Yariel Kc > 09/21/20 0311
--- NOTE | 2020-09-21 09:59 | REP ---
INDICATION: GENERALIZED ABD PAIN, BLOOD IN STOOL. COMPARISON: Comparison MRI study of the abdomen is from January 01, 2019. Comparison CT study April 05, 2015.. TECHNIQUE: Axial and coronal imaging planes utilized. T1 and T2 weighted sequences include spin echo, fast spin echo, diffusion-weighted scans, gradient echo, in and out of phase, and sequential dynamically acquired post contrast T1 fat sat thrive sequences. Gadolinium enhancement dose is 18 mL of intravenous ProHance. FINDINGS: There is no evidence of pleural effusion or ascites. [id number]-[id number]-[id number] splenomegaly is observed. The spleen measures 15.8 cm in craniocaudal span. No focal splenic lesion is seen. No abnormal adrenal lesion in or pancreatic lesion is observed. No retroperitoneal mass or adenopathy is seen. Visualized bony structures are intact. There are multiple simple cysts in the liver. The largest of these measure 3.2 and 3.4 cm in greatest diameter there is no filling defect in the gallbladder. No intrahepatic or extrahepatic bile duct dilation. CBD is normal. Pancreatic duct is normal in appearance. There are bilateral renal cortical cysts. The largest of these is simple cyst in the upper pole the right kidney measuring 5.6 cm in greatest diameter today. This previously measured 4.7 cm. There is a 1.5 cm simple cyst in the upper pole of the right kidney as well. In the left kidney, there is a is simple cyst in the lower pole measuring 1.5 cm in greatest diameter. There is a proteinaceous complex cyst at mid pole level in the left kidney measuring 2.1 cm in greatest diameter today. This displays low T2 and relatively increased T1 signal. It is unchanged from the January 01, 2019 study. In addition, today's study demonstrates a 1.1 cm lesion in the peripheral cortex of the right mid kidney. On T2 weighted scans, this lesion has a low T2 signal intensity rim consistent with hemosiderin staining. It is only very slightly hyperintense to renal parenchyma on T2 weighted scans and essentially isointense on T1. Sequential postcontrast images demonstrate heterogeneous contrast enhancement. I cannot exclude an early renal cell carcinoma. 1.1 cm. There is some adjacent edema or vascularity in the Annemarie nephric fat. No adenopathy. No other renal mass lesion is seen. Small and large bowel loops are unremarkable as visualized. No other abnormal contrast enhancement. IMPRESSION: Multiple hepatic and gradually enlarging renal cysts. Today's study demonstrates a 1.1 cm solid enhancing lesion in the peripheral cortex of the right mid kidney with some adjacent streakiness or vascularity in the perinephric fat. A small renal cell carcinoma cannot be excluded here. No other acute abnormality. <Electronically signed by Yariel Kc > 09/21/20 0922
== END ==
LOC: M RAD 16:35
PROVIDERS: ATTEND Physician Assistant Medical
DX: R10.84 Generalized abdominal pain (principal); R19.4 Change in bowel habit; K62.5 Hemorrhage of anus and rectum; M43.16 Spondylolisthesis, lumbar region; N28.1 Cyst of kidney, acquired; R16.1 Splenomegaly, not elsewhere classified; N28.89 Other specified disorders of kidney and ureter
CPT/HCPCS: 72197; 74183; A9576

== ENCOUNTER → 2020-10-22 | Outpatient (CLI) | payer OTHER ==
[~2020-10-22] MED LIST changes: -PROHANCE 279.3MG/ML 15ML VIAL As Ordered ONE; -PROHANCE 279.3MG/ML 5ML VIAL As Ordered ONE
== END ==
LOC: M LABSMTC 08:25
PROVIDERS: ATTEND Anesthesiology
DX: Z01.812 Encounter for preprocedural laboratory examination (principal); Z20.822 Contact with and (suspected) exposure to COVID-19

== ENCOUNTER 2020-10-27 10:43 | Day surgery (SDC) | payer OTHER ==
[~2020-10-27] VITALS: Ht 188 cm; Wt 93.0 kg
[~2020-10-27 10:43] MED LIST changes: +NS 1,000 ML IV ONE
[2020-10-27] MEDS ORDERED: LIDOCAINE 2% 100MG/5ML SDV (FOR ANES.) As Ordered ONE (11:52)
[2020-10-27] MEDS ORDERED: propofoL 200 MG/20 ML VIAL As Ordered ONE (11:52)
[2020-10-27] MEDS ORDERED: fentaNYL 100 MCG/2 ML INJECTION (J3010) As Ordered ONE ×2 (11:53→12:05)
[2020-10-27] MEDS ORDERED: SIMETHICONE 40MG/0.6ML DROPS 30ML As Ordered ONE (11:54)
[2020-10-27] MEDS ORDERED: MIDAZOLAM INJ 2MG/2ML VIAL (J2250 PER 1MG) As Ordered ONE ×2 (11:57→12:07)
--- NOTE | 2020-10-27 12:14 | ROOR ---
Patient Name: Orville Mejia Procedure Date: 10/27/2020 12:00 PM Date of : 1955 Age: 65 Room: [facility] Gender: Male Note Status: Finalized Procedure: Upper GI endoscopy Indications: Epigastric abdominal pain, Heartburn Providers: Keith VALENZUELA MD Referring MD: No Pcp Requesting Provider: Medicines: Fentanyl 100 micrograms IV, Midazolam 4 mg IV Complications: No immediate complications. Procedure: Pre-Anesthesia Assessment: - The heart rate, respiratory rate, oxygen saturations, blood pressure, adequacy of pulmonary ventilation, and response to care were monitored throughout the procedure. The Endoscope was introduced through the mouth, and advanced to the second part of duodenum. The upper GI endoscopy was accomplished without difficulty. The patient tolerated the procedure well. Findings: The esophagus was normal. The stomach was normal. The examined duodenum was normal. Impression: - Normal esophagus. - Normal stomach. - Normal examined duodenum. - No specimens collected. Recommendation: - Observe patient's clinical course. - Continue present medications. Procedure Code(s): --- Professional --- 97615, Esophagogastroduodenoscopy, flexible, transoral; diagnostic, including collection of specimen(s) by brushing or washing, when performed (separate procedure) Diagnosis Code(s): --- Professional --- R12, Heartburn R10.13, Epigastric pain CPT copyright 2019 [employer]. All rights reserved. The codes documented in this report are preliminary and upon product support specialist review may be revised to meet current compliance requirements. Keith Valenzuela MD Keith VALENZUELA MD 10/27/2020 12:14:08 PM Electronically signed by Keith VALENZUELA MD Number of Addenda: 0 Note Initiated On: 10/27/2020 12:00 PM Estimated Blood Loss: Estimated blood loss: none.
--- NOTE | 2020-10-27 12:41 | ROOR ---
Patient Name: Orville Mejia Procedure Date: 10/27/2020 12:02 PM Date of : 1955 Age: 65 Room: [facility] Gender: Male Note Status: Finalized Procedure: Colonoscopy Indications: High risk colon cancer surveillance: Personal history of colonic polyps Providers: Keith VALENZUELA MD Referring MD: No Pcp Requesting Provider: Medicines: Fentanyl 100 micrograms IV, (in addition to sedation for EGD), Monitored Anesthesia Care Complications: No immediate complications. Procedure: Pre-Anesthesia Assessment: - The heart rate, respiratory rate, oxygen saturations, blood pressure, adequacy of pulmonary ventilation, and response to care were monitored throughout the procedure. The was introduced through the anus and advanced to the cecum, identified by appendiceal orifice and ileocecal valve. The colonoscopy was performed without difficulty. The patient tolerated the procedure well. The quality of the bowel preparation was adequate and fair. Findings: Hemorrhoids were found on perianal exam. A 5 mm polyp was found in the sigmoid colon. The polyp was sessile. The polyp was removed with a cold snare. Resection and retrieval were complete. There is no endoscopic evidence of polyps in the proximal Ascending Colon. Impression: - Preparation of the colon was fair. - Hemorrhoids found on perianal exam. - One 5 mm polyp in the sigmoid colon, removed with a cold snare. Resected and retrieved. - I do not see any residual polyp in the ascending colon. The colon prep was somewhat suboptimal here and required lavage. Recommendation: - Repeat colonoscopy in 3 years for surveillance. - Repeat colonoscopy in 3 years because the bowel preparation was suboptimal. Procedure Code(s): --- Professional --- 48647, Colonoscopy, flexible; with removal of tumor(s), polyp(s), or other lesion(s) by snare technique Diagnosis Code(s): --- Professional --- K63.5, Polyp of colon K64.9, Unspecified hemorrhoids Z86.010, Personal history of colonic polyps CPT copyright 2019 [employer]. All rights reserved. The codes documented in this report are preliminary and upon adult caregiver review may be revised to meet current compliance requirements. Keith Valenzuela MD Keith VALENZUELA MD 10/27/2020 12:41:24 PM Electronically signed by Keith VALENZUELA MD Number of Addenda: 0 Note Initiated On: 10/27/2020 12:02 PM Estimated Blood Loss: Estimated blood loss: none. Estimated blood loss: none.
[2020-10-27 13:00] VITALS: BP 114/70
== END 2020-10-27 13:08 | disposition home or self-care (01) ==
LOC: M OPP 10:43
PROVIDERS: ATTEND Internal Medicine Gastroenterology
DX: Z12.11 Encounter for screening for malignant neoplasm of colon (principal); Z86.010 Personal history of colon polyps; K63.5 Polyp of colon; K64.8 Other hemorrhoids; R10.13 Epigastric pain; J44.9 Chronic obstructive pulmonary disease, unspecified; F17.210 Nicotine dependence, cigarettes, uncomplicated; Z79.899 Other long term (current) drug therapy; Z88.8 Allergy status to other drugs, medicaments and biological substances; Z91.041 Radiographic dye allergy status; Z88.0 Allergy status to penicillin
CPT/HCPCS: 43235; 45385; 88305; J2250; J3010

== ENCOUNTER → 2020-12-19 | Outpatient (REF) | payer OTHER ==
[~2020-12-19] MED LIST changes: -NS 1,000 ML IV ONE
[2020-12-19 18:28] LABS: BASO % 0.4 % (0.0-1.0); EOS # 0.1 10^3/uL (0.0-0.5); EOS % 1.4 % (0.0-3.0); HEMATOCRIT 43.6 % (42.0-52.0); HEMOGLOBIN 14.2 g/dl (13.5-17.5); LYMPH # 3.1 10^3/uL (1.5-5.0); LYMPH % 37.1 % (24.0-44.0); MEAN CORPUSCULAR HEMOGLOBIN 29.6 pg (27.0-33.0); MEAN CORPUSCULAR HGB CONC 32.6 g/dl (32.0-36.5); MEAN CORPUSCULAR VOLUME 90.8 fl (80.0-96.0); MONO # 0.7 10^3/uL (0.0-0.8); MONO % 8.5 % (2.0-8.0); NEUTROPHILS # 4.3 10^3/uL (1.5-8.5); NEUTROPHILS % 52.1 % (36.0-66.0); PLATELET COUNT, AUTOMATED 175 10^3/uL (150-450); WHITE BLOOD COUNT 8.3 10^3/uL (4.0-10.0)
[2020-12-19 18:54] LABS: ALBUMIN 3.9 GM/DL (3.2-5.2); ALT/SGPT 22 U/L (12-78); BILIRUBIN,TOTAL 0.3 MG/DL (0.2-1.0); BLOOD UREA NITROGEN 20 MG/DL (7-18); CALCIUM LEVEL 9.1 MG/DL (8.8-10.2); CARBON DIOXIDE LEVEL 28 MEQ/L (21-32); CHLORIDE LEVEL 105 MEQ/L (98-107); CHOLESTEROL LEVEL 176 MG/DL (<200); CHOLESTEROL RISK RATIO 5.333 (<5); CREATININE FOR GFR 0.99 MG/DL (0.70-1.30); GLOMERULAR FILTRATION RATE > 60.0 (>49); GLUCOSE, FASTING 89 MG/DL (70-100); HDL CHOLESTEROL 33 MG/DL (>40); LDL CHOLESTEROL 120 MG/DL (<100); NON-HDL-C 143 MG/DL; POTASSIUM SERUM 4.6 MEQ/L (3.5-5.1); SODIUM LEVEL 138 MEQ/L (136-145); TOTAL PROTEIN 7.2 GM/DL (6.4-8.2); TRIGLYCERIDES LEVEL 113 MG/DL (<150)
[2020-12-19 20:13] LABS: HEMOGLOBIN A1c 5.4 %
== END ==
LOC: M LAB REF 16:26
PROVIDERS: ATTEND Physician Assistant
DX: E78.5 Hyperlipidemia, unspecified (principal); Z13.228 Encounter for screening for other metabolic disorders; N18.2 Chronic kidney disease, stage 2 (mild)

== ENCOUNTER → 2021-03-23 | Outpatient (CLI) | payer OTHER ==
[~2021-03-23] MED LIST changes: +OMEP40CA4 PO; -OMEP40CA97 PO
[2021-03-23 11:33] LABS: BLOOD UREA NITROGEN 16 MG/DL (7-18); CARBON DIOXIDE LEVEL 27 MEQ/L (21-32); CHLORIDE LEVEL 111 MEQ/L (98-107); CREATININE FOR GFR 0.82 MG/DL (0.70-1.30); GLOMERULAR FILTRATION RATE > 60.0 (>49); GLUCOSE, FASTING 104 MG/DL (70-100); POTASSIUM SERUM 4.4 MEQ/L (3.5-5.1); SODIUM LEVEL 140 MEQ/L (136-145)
== END ==
LOC: M LAB 10:14
PROVIDERS: ATTEND Nurse Practitioner Women's Health
DX: N28.89 Other specified disorders of kidney and ureter (principal)

== ENCOUNTER → 2021-03-28 | Outpatient (CLI) | payer OTHER ==
[~2021-03-28] MED LIST changes: +ISOVUE-370 76% 100ML VIAL As Ordered ONE
--- NOTE | 2021-03-28 17:22 | REP ---
INDICATION: RENAL MASS. COMPARISON: MRI abdomen, 09/20/2020. MRI pelvis, 09/20/2020. CT abdomen pelvis, 04/05/2015. TECHNIQUE: Imaging protocol: Computed tomography of the abdomen without and with IV contrast and with delayed postcontrast images. Contiguous 3 mm thick axial projection images were obtained through the abdomen. 2D sagittal and coronal reconstructions were performed. Radiation optimization: All CT scans at this facility use at least one of these dose optimization techniques: automated exposure control; mA and/or kV adjustment per patient size (includes targeted exams where dose is matched to clinical indication); or iterative reconstruction. Contrast material: ISOVUE 370; Contrast volume: 100 ml; Contrast route: INTRAVENOUS (IV). FINDINGS: Heart and lung bases: The lung bases are clear. There are no pleural effusions. The heart size is normal. There is no pericardial effusion. Liver: There are multiple benign hepatic cysts. Gallbladder: The gallbladder is surgically absent. Spleen: Spleen is enlarged measuring 15.0 cm in pole to pole length. Pancreas: Normal. Adrenal glands: Normal. Kidneys: There is a 2.1 cm in diameter mildly enhancing cortical mass in the interpolar region of the left kidney. The pre contrast density is 36 HU and the postcontrast density is 50 HU. There is a 13 mm in diameter enhancing cortical nodule in the interpolar region of the right kidney. There are benign cortical cysts in both kidneys. GI tract: There is stool throughout the visualized portion of the colon. There is a normal appendix demonstrated. Abdominal wall and mesentery: There is a 12 mm in diameter umbilical hernia containing normal fat. Abdominal aorta and vascular structures: There is calcific vascular disease of the abdominal aorta. The inferior vena cava and portal venous system are normal. Bony structures: There are anterior osteophytes and lateral syndesmophytes in the lower thoracic and upper lumbar spine consistent with diffuse idiopathic skeletal hyperostosis (DISH). There is bilateral spondylolysis with grade 1 anterolisthesis, L5 on S1. IMPRESSION: 1. There is a 13 mm in diameter enhancing cortical nodule in the interpolar region of the right kidney worrisome for renal cell carcinoma. 2. There is a mildly enhancing cortical mass in the interpolar region of the left kidney. Review of multiple prior MR and CT examinations demonstrates increasing in size and heterogeneous enhancement. 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 3. Moderate splenomegaly. 4. Other findings as noted. <Electronically signed by Vipin Mon > 03/28/21 [id number]
== END ==
LOC: M RAD 14:35
PROVIDERS: ATTEND Nurse Practitioner Women's Health
DX: N28.89 Other specified disorders of kidney and ureter (principal); K76.89 Other specified diseases of liver; Z90.49 Acquired absence of other specified parts of digestive tract; R16.1 Splenomegaly, not elsewhere classified; N28.1 Cyst of kidney, acquired; I70.0 Atherosclerosis of aorta
CPT/HCPCS: 74170; Q9967

== ENCOUNTER → 2021-04-10 | Outpatient (CLI) | payer OTHER ==
[~2021-04-10] MED LIST changes: -ISOVUE-370 76% 100ML VIAL As Ordered ONE
--- NOTE | 2021-04-10 09:22 | REP ---
INDICATION: PAIN IN RIGHT KNEE. COMPARISON: None. TECHNIQUE: [place], AP and lateral views of the right knee. FINDINGS: Subchondral sclerosis along the medial tibial plateau with moderate early advanced tricompartmental osteoarthritic changes including cortical irregularity and early osteophytosis noted. Small corticated loose body within the intercondylar fossa cannot be excluded. No obvious acute fracture. Small effusion cannot be excluded. IMPRESSION: Early advanced tricompartmental osteoarthritic degenerative changes. <Electronically signed by Oj Villafana > 04/10/21 [id number]
== END ==
LOC: M SOG 08:54
PROVIDERS: ATTEND Orthopaedic Surgery Adult Reconstructive Orthopaedic Surgery
DX: M17.11 Unilateral primary osteoarthritis, right knee (principal)

== ENCOUNTER → 2021-04-12 | Outpatient (REF) | payer OTHER | LOC: M LAB REF 17:09 | PROVIDERS: ATTEND Internal Medicine Nephrology | DX: N18.2 Chronic kidney disease, stage 2 (mild) (principal) ==

== ENCOUNTER → 2021-04-17 | Outpatient (REF) | payer OTHER ==
[2021-04-17 18:13] LABS: ALBUMIN 3.4 GM/DL (3.2-5.2); ALT/SGPT 34 U/L (12-78); BILIRUBIN,TOTAL 0.3 MG/DL (0.2-1.0); BLOOD UREA NITROGEN 18 MG/DL (7-18); CALCIUM LEVEL 8.7 MG/DL (8.8-10.2); CARBON DIOXIDE LEVEL 27 MEQ/L (21-32); CHLORIDE LEVEL 109 MEQ/L (98-107); CHOLESTEROL LEVEL 97 MG/DL (<200); CHOLESTEROL RISK RATIO 3.031 (<5); CREATININE FOR GFR 0.93 MG/DL (0.70-1.30); GLOMERULAR FILTRATION RATE > 60.0 (>49); GLUCOSE, FASTING 88 MG/DL (70-100); HDL CHOLESTEROL 32 MG/DL (>40); LDL CHOLESTEROL 46 MG/DL (<100); NON-HDL-C 65 MG/DL; POTASSIUM SERUM 4.5 MEQ/L (3.5-5.1); SODIUM LEVEL 139 MEQ/L (136-145); TOTAL PROTEIN 6.5 GM/DL (6.4-8.2); TRIGLYCERIDES LEVEL 96 MG/DL (<150)
== END ==
LOC: M LAB REF 16:40
PROVIDERS: ATTEND Family Medicine Addiction Medicine
DX: E78.5 Hyperlipidemia, unspecified (principal)

== ENCOUNTER → 2021-04-18 | Outpatient (CLI) | payer OTHER ==
--- NOTE | 2021-04-18 12:20 | REP ---
INDICATION: PROSTATE CANCER *LABS 1ST, EKG 2ND, XRY 3RD* COMPARISON: 03/31/2017 TECHNIQUE: PA and lateral. FINDINGS: The mediastinum and cardiac silhouette are normal. The lung varghese suggest vague presumed chronic changes. No focal consolidation. No effusion. No pneumothorax. The skeletal structures are intact and normal. IMPRESSION: No acute cardiopulmonary process. Vague chronic changes primarily in the region of the left hilar/infrahilar lung zone are suggested. Based on symptomatology, chest CT may be considered for further investigation. <Electronically signed by Oj Villafana > 04/18/21 [id number]
[2021-04-18 12:33] LABS: HEMATOCRIT 42.5 % (42.0-52.0); HEMOGLOBIN 14.1 g/dl (13.5-17.5); MEAN CORPUSCULAR HEMOGLOBIN 30.1 pg (27.0-33.0); MEAN CORPUSCULAR HGB CONC 33.2 g/dl (32.0-36.5); MEAN CORPUSCULAR VOLUME 90.6 fl (80.0-96.0); PLATELET COUNT, AUTOMATED 145 10^3/uL (150-450); RED BLOOD COUNT 4.69 10^6/uL (4.30-6.10); WHITE BLOOD COUNT 9.1 10^3/uL (4.0-10.0)
[2021-04-18 12:44] LABS: INR 0.99; PROTHROMBIN TIME 13.5 SECONDS (12.7-14.5)
[2021-04-18 12:45] LABS: PARTIAL THROMBOPLASTIN TIME 37.8 SECONDS (25.9-37.0)
[2021-04-18 13:16] LABS: ALBUMIN 3.5 GM/DL (3.2-5.2); ALT/SGPT 32 U/L (12-78); BILIRUBIN,TOTAL 0.5 MG/DL (0.2-1.0); BLOOD UREA NITROGEN 14 MG/DL (7-18); CALCIUM LEVEL 8.6 MG/DL (8.8-10.2); CARBON DIOXIDE LEVEL 28 MEQ/L (21-32); CHLORIDE LEVEL 110 MEQ/L (98-107); CREATININE FOR GFR 0.99 MG/DL (0.70-1.30); GLOMERULAR FILTRATION RATE > 60.0 (>49); GLUCOSE, FASTING 93 MG/DL (70-100); POTASSIUM SERUM 4.5 MEQ/L (3.5-5.1); SODIUM LEVEL 139 MEQ/L (136-145); TOTAL PROTEIN 6.5 GM/DL (6.4-8.2)
--- NOTE | 2021-04-19 10:05 | ECGEPIP ---
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
== END ==
LOC: M LAB 11:47
PROVIDERS: ATTEND Urology
DX: Z01.818 Encounter for other preprocedural examination (principal); Z12.5 Encounter for screening for malignant neoplasm of prostate; N28.89 Other specified disorders of kidney and ureter; R00.1 Bradycardia, unspecified

== ENCOUNTER → 2021-04-27 | Outpatient (CLI) | payer OTHER ==
[~2021-04-27] MED LIST changes: +ATOR40TA75 PO
== END ==
LOC: M LABSMTC 09:14
PROVIDERS: ATTEND Anesthesiology
DX: Z01.812 Encounter for preprocedural laboratory examination (principal); Z20.822 Contact with and (suspected) exposure to COVID-19

== ENCOUNTER 2021-05-02 06:14 | Inpatient (IN) | payer OTHER ==
[~2021-05-02] VITALS: Ht 188 cm; Wt 91.6 kg
[~2021-05-02 06:14] MED LIST changes: +LIDOCAINE 1% MDV 20ML VIAL SQ PRN; +LR 1,000 ML IV ONE; +ceFAZolin SOD 2 GM in IV 1 EA IV ONE
[2021-05-02] MEDS ORDERED: DESFLURANE 240 ML INHALANT As Ordered ONE (07:04)
[2021-05-02] MEDS ORDERED: LACRILUBE (AKWA TEARS) OPHTH OINT 3.5 GM As Ordered ONE (07:10)
[2021-05-02] MEDS ORDERED: propofoL 200 MG/20 ML VIAL As Ordered ONE (07:13)
[2021-05-02] MEDS ORDERED: ROCURONIUM BROMIDE 50 MG/5 ML VIAL As Ordered ONE ×3 (07:14→11:03)
[2021-05-02] MEDS ORDERED: LIDOCAINE 2% 100MG/5ML SDV (FOR ANES.) As Ordered ONE ×4 (07:14→11:58)
[2021-05-02] MEDS ORDERED: MIDAZOLAM INJ 2MG/2ML VIAL (J2250 PER 1MG) As Ordered ONE ×2 (07:15→07:43)
[2021-05-02] MEDS ORDERED: dexameTHASONE 4 MG/ML 1ML VIAL (J1100 PER 1MG) As Ordered ONE (07:15)
[2021-05-02] MEDS ORDERED: fentaNYL 100 MCG/2 ML INJECTION (J3010) As Ordered ONE (07:15)
[2021-05-02] MEDS ORDERED: ONDANSETRON 4MG/2ML VIAL As Ordered ONE (07:15)
[2021-05-02] MEDS ORDERED: LIDOCAINE 1% SDV 30ML VIAL As Ordered ONE (07:16)
[2021-05-02] MEDS ORDERED: SUGAMMADEX SODIUM 500 MG/5 ML VIAL (BRIDION) As Ordered ONE (07:16)
[2021-05-02] MEDS ORDERED: BUPIVACAINE HCL 0.25% 30ML VIAL As Ordered ONE (07:17)
[2021-05-02] MEDS ORDERED: fentaNYL 250 MCG/5 ML INJECTION (J3010) As Ordered ONE (07:43)
[2021-05-02] MEDS ORDERED: PERCOCET 5MG/325MG TAB PO PRN ×2 (07:55→14:05)
[2021-05-02] MEDS ORDERED: ONDANSETRON 4MG/2ML VIAL IV PRN ×2 (07:55→14:05)
[2021-05-02] MEDS ORDERED: ACETAMINOPHEN TAB 650MG DOSE (2X325MG) PO PRN (07:55)
[2021-05-02] MEDS ORDERED: FAMOTIDINE 20 MG TAB PO PRN (07:55)
[2021-05-02] MEDS: NS 1,000 ML IV SCH ×5 (07:55→23:35)
[2021-05-02] MEDS ORDERED: ePHEDrine SULFATE 25 MG/5 ML(5MG/ML) SYRINGE As Ordered ONE (08:34)
[2021-05-02] MEDS ORDERED: ACETAMINOPHEN 1000MG 100ML IV BTL (OFIRMEV) (J0131 PER 10MG) As Ordered ONE (12:55)
[2021-05-02] MEDS ORDERED: KETOROLAC 60MG 2ML VIAL As Ordered ONE (12:56)
[2021-05-02] MEDS ORDERED: HYDROmorphone HCL 2 MG/ML 1ML VIAL (J1170) As Ordered ONE (13:48)
[2021-05-02] MEDS ORDERED: LR 1,000 ML IV SCH (14:05)
[2021-05-02] MEDS ORDERED: METOCLOPRAMIDE INJ 10MG/2ML VIAL (J2765 PER 1) IV PRN (14:05)
--- NOTE | 2021-05-02 14:38 | ROOPDOC ---
[facility] Report Of Operation Report of Operation DATE OF PROCEDURE: 05/02/21 PREPROCEDURE DIAGNOSIS: Left renal mass. POSTPROCEDURE DIAGNOSIS: Left renal mass. PROCEDURE: Left robotic-assisted laparoscopic radical nephrectomy (adrenal- sparing). SURGEON: Adelia Nunes MD SEARCH ENGINEER: Milly Toney NP ANESTHESIA: General. OPERATIVE INDICATIONS: This is a 65 year old male who was recently found to have an 2.5cm enhancing mass in the interpolar region of his left kidney. It was recommended that he undergo treatment with plan for a partial nephrectomy. He was also advised that given the central location of the mass it might be necessary to perform a radical nephrectomy for treatment. He was brought to the operating room today for treatment. DESCRIPTION OF PROCEDURE: The patient was brought to the operating room and general anesthesia was induced. Prophylactic antibiotics were infused. He then had a Edwards catheter placed under sterile conditions. He was then placed in the right lateral decubitus position with all pressure points appropriately padded. An axillary roll was placed. He was then secured to the table with tape. He was then prepped and draped in the usual sterile fashion. Initial incision was then for an 8mm port in line with the 11th rib along the lateral rectus margin. The Veress needle was utilized to achieve pneumoperitoneum. An 8mm port was then inserted and after which a camera was inserted. There were no apparent injuries from Veress needle or initial trocar placement. The remainder of the ports were then placed under direct vision, including a left hand robotic port just beneath the costal margin and two right hand robotic ports, with one between the anterior superior iliac spine and the umbi licus, and the other one just caudal to the camera port and on the lateral border of the rectus. A 15 mm office support assistant port was placed medial to the camera port. After all the ports were placed, the robot was then docked and the instruments were inserted. We began the dissection by mobilizing the left colon medially off of Gerota's fascia. The spleen was also mobilized cephalad off the upper part of Gerota's fascia. We then started dissecting on the lower pole of the kidney and the gonadal vein was located. The gonadal vein was then dissected and traced up towards the left renal vein. The gonadal vein was then ligated with clips and transected in between. Once that was done, we were able to identify both renal arteries just superior to the renal vein. Given the location of the tumor very close to the renal vessels and just posterior to them, it was determined that a partial nephrectomy could not be safely performed. The decision was therefore made to proceed with a radical nephrectomy. The renal arteries were carefully dissected and then they were each ligated with 3 Weck clips and then transected in between, leaving two Weck clips on the stay side. At this point, the adrenal vein was also ligated with Weck clips and transected in between. The renal vein was then carefully dissected, and it was then ligated and transected with a 45 load robotic stapler. At this point, the rest of the hilum was completely taken. We then mobilized the adrenal gland off the upper pole of the kidney and spared the adrenal gland. The upper pole of the kidney was then completely mobilized along with the rest of the kidney until the kidney was only attached by the ureter distally. At this point, the ureter was then ligated with clips and transected in between. At this point, the kidney and ureter were placed in an Endo Catch bag for future retrieval. At this point, we checked for hemostasis and hemostasis appeared excellent. We did administer [place]w over the area of the hilum. Once this was done, the robot was undocked, and we utilized a Ramón-Henry fascial closure device to place an #0 Vicryl tie through the fascia of the camera port site. We then extended the more medial right hand robotic port site to use this as an extraction site. We then dissected down through the subcutaneous layers and opened the fascia with electrocautery. At this point, the muscle was bluntly spread just enough so that we could then extract the kidney and ureter within the Endo Catch bag. Once this was done, we checked for hemostasis and it appeared excellent. The muscle was then reapproximated with [id number] #0 Vicryl suture. We then closed the fascia with a running #0 Vicryl suture. At this point, the abdomen was then re-insufflated, and we checked the extraction site and there were no intraabdominal contents caught within the extraction site closure. There was no bleeding from the extraction site either. At this point, we removed all of the other ports under direct vision, and there was no bleeding from the port sites. Once all the ports were removed, the previously placed #0 Vicryl free tie was tied down in the camera port site. We then irrigated all of the incisions with sterile saline. Once that was done, the skin of all incisions was then closed with running #4-0 Monocryl subcuticular suture. Once this was done, local anesthesia was applied and Dermabond was then applied to all the incisions. This marked the conclusion of the procedure. The patient was then taken out of the right lateral decubitus position, awakened from anesthesia and transported to the recovery room in stable condition. ESTIMATED BLOOD LOSS: 50 mL. COMPLICATIONS: None. SPECIMENS: Left kidney. PLAN: The patient will be kept in the hospital for the next few days. We will monitor him closely to see what his kidney function is and once his kidney function levels off, his pain is under good control and he is tolerating a regular diet, he will be ready for discharge. ADELIA NUNES MD May 02, 2021 08:06
[2021-05-02] MEDS: fentaNYL 100 MCG/2 ML INJECTION (J3010) IV PRN ×4 (14:49→15:18)
[2021-05-02] MEDS: PERCOCET 5MG/325MG TAB PO PRN ×2 (15:02→21:01)
[2021-05-02] MEDS ORDERED: HYDROMORPHONE HCL 0.5 MG/ 0.5 ML SYRINGE (J1170 PER 1) IV PRN (15:15)
[2021-05-02 15:21] LABS: CALCIUM LEVEL 8.2 MG/DL (8.8-10.2); CREATININE FOR GFR 1.34 MG/DL (0.70-1.30); GLOMERULAR FILTRATION RATE 57.1 (>49); POTASSIUM SERUM 4.9 MEQ/L (3.5-5.1)
[2021-05-02 16:00] VITALS: BP 116/75
[2021-05-02 16:30] VITALS: BP 115/73
[2021-05-02] MEDS ORDERED: HOME MED LIST COMPLETE! XX SCH (16:30)
[2021-05-02 17:00] VITALS: BP 102/58
[2021-05-02] MEDS: ceFAZolin SOD 1 GM in D5W MINI-BAG PLUS 50 ML IV SCH ×2 (17:03→23:35)
[2021-05-02 18:00] VITALS: BP 120/65
[2021-05-02 19:00] VITALS: BP 97/60
[2021-05-02 19:38] LABS: HEMATOCRIT 40.6 % (42.0-52.0); HEMOGLOBIN 13.2 g/dl (13.5-17.5); MEAN CORPUSCULAR HEMOGLOBIN 30.2 pg (27.0-33.0); MEAN CORPUSCULAR HGB CONC 32.5 g/dl (32.0-36.5); MEAN CORPUSCULAR VOLUME 92.9 fl (80.0-96.0); PLATELET COUNT, AUTOMATED 134 10^3/uL (150-450); RED BLOOD COUNT 4.37 10^6/uL (4.30-6.10); WHITE BLOOD COUNT 11.7 10^3/uL (4.0-10.0)
[2021-05-02] MEDS: DOCUSATE SODIUM 100MG CAPSULE PO SCH (21:01)
[2021-05-02 22:00] VITALS: BP 114/68
[2021-05-03] MEDS: PERCOCET 5MG/325MG TAB PO PRN ×4 (01:16→14:23)
[2021-05-03 01:18] VITALS: BP 112/67
[2021-05-03 06:00] VITALS: BP 104/61
[2021-05-03] MEDS: NS 1,000 ML IV SCH (07:59)
[2021-05-03] MEDS: DOCUSATE SODIUM 100MG CAPSULE PO SCH (08:00)
[2021-05-03] MEDS ORDERED: ATORVASTATIN 20 MG TAB PO SCH (09:00)
[2021-05-03] MEDS ORDERED: NICOTINE 21MG/24HR 1 EA TRANSDERMAL TD SCH (09:00)
[2021-05-03] MEDS ORDERED: TAMSULOSIN 0.4 MG CAP PO SCH (09:00)
--- NOTE | 2021-05-03 09:01 | IPNPDOC ---
Subjective Review oF Systems Chief Complaint The patient is a 65-year-old male admitted with a reason for visit of Renal Mass. Events since Last Encounter No acute events o/n. Pain controlled w/ percocet. No n/v. No f/c/ns. Objective Physical Examination General Exam: Alert, Cooperative, No Acute Distress ABDOMEN EXAM: Soft, Tenderness (mild), Other (incisions clean/dry/intact) Neuro Exam: Normal Speech Psych Exam: Mental status NL, Mood NL Other physical findings catheter draining clear yellow urine Vital Signs/I&O Vital Signs Date Time Temp Pulse Resp B/P (MAP) Pulse Ox O2 Delivery O2 Flow Rate FiO2 05/03/21 06:15 18 05/03/21 06:00 98.6 70 104/61 (75) 92 Room Air 05/02/21 19:00 2.0 I&O- Last 24 Hours up to 6 AM 05/03/21 06:00 Intake Total 2750 ml Output Total 550 ml Balance 2200 ml Laboratory Data Labs 24H Laboratory Tests 2 05/02/21 14:38: Nucleated Red Blood Cells % (auto) 0.0, Anion Gap 4L, Glomerular Filtration Rate 57.1, Calcium Level 8.2L CBC/BMP Laboratory Tests 05/02/21 14:38 Assessment/Plan Date Seen The patient was seen on 05/03/21. Patient Summary This is a 65 y/o M POD1 s/p L robotic radical nephrectomy. He is doing well. Morning labs are still pending. UOP recorded is 250cc over night. He has a lot more in his Edwards bag. Plan/VTE VTE Prophylaxis Ordered?: Yes VTE Exclusion Mechanical Proph: N/A:VTE Prophy Ordered Plan - d/c Edwards - d/c IVF - percocet prn pain - strict I/Os - continue home meds - ambulate - SCDs in bed - nicotine patch - incentive spirometry - clear liquid diet - advance diet as tolerated DAELIA NUNES MD May 03, 2021 09:01
[2021-05-03 09:55] LABS: HEMATOCRIT 34.5 % (42.0-52.0); HEMOGLOBIN 11.3 g/dl (13.5-17.5); MEAN CORPUSCULAR HEMOGLOBIN 29.9 pg (27.0-33.0); MEAN CORPUSCULAR HGB CONC 32.8 g/dl (32.0-36.5); MEAN CORPUSCULAR VOLUME 91.3 fl (80.0-96.0); PLATELET COUNT, AUTOMATED 115 10^3/uL (150-450); RED BLOOD COUNT 3.78 10^6/uL (4.30-6.10); WHITE BLOOD COUNT 10.5 10^3/uL (4.0-10.0)
[2021-05-03 10:00] VITALS: BP 103/60
[2021-05-03 10:24] LABS: CREATININE FOR GFR 1.71 MG/DL (0.70-1.30); GLOMERULAR FILTRATION RATE 43.1 (>49); POTASSIUM SERUM 3.9 MEQ/L (3.5-5.1)
[2021-05-03] MEDS ORDERED: PERCOCET PO (11:14)
[2021-05-03] MEDS ORDERED: COLA100C5 PO (11:14)
--- NOTE | 2021-05-03 13:46 | DSES ---
DISCHARGE SUMMARY DATE OF ADMISSION: 05/02/2021 DATE OF DISCHARGE: 05/03/2021 ADMISSION DIAGNOSIS: Left renal neoplasm. DISCHARGE DIAGNOSIS: Left renal neoplasm. ADMITTING PHYSICIAN: Nir Londono MD DISCHARGING PHYSICIAN: Nir Londono MD PROCEDURE PERFORMED: Left robotic-assisted laparoscopic radical nephrectomy on 05/02/2021. HISTORY OF PRESENT ILLNESS: This is a 65-year-old male who was found to have an enhancing 2.5 cm central left renal mass. He underwent the above listed procedure for treatment and was admitted to the hospital postoperatively. HOSPITAL COURSE: The patient was admitted to the hospital after undergoing surgery on 05/02/2021. His postoperative course was unremarkable. His labs during his hospital stay were within expected limits. Specifically, his hemoglobin remained stable at 11.3. His serum creatinine went up to 1.7 on postoperative day one. His urine output during his hospital stay was good. On postoperative day one his catheter was removed and he voided without any difficulty. We got him ambulating and he did so with minimal difficulty. His pain was well controlled with oral pain medication. His diet was advanced and he was able to tolerate a regular diet without any nausea or vomiting. On afternoon of postoperative day one he was deemed ready for discharge home. He was discharged home with the plan for follow up in urology clinic in 2-3 weeks for postoperative visit and to discuss his pathology results.
[2021-05-03 14:00] VITALS: BP 100/57
[2021-05-04] MEDS ORDERED: OXYC1TAB23 PO (18:41)
[2021-05-04] MEDS ORDERED: DOCU100C16 PO (18:41)
== END 2021-05-03 17:00 | disposition home or self-care (01) | DRG 443 ==
LOC: M OR 06:14 → M MS5PR 16:00
PROVIDERS: ADMIT Urology; ATTEND Urology
PROC: 8E0W4CZ Robotic Assisted Procedure of Trunk Region, Percutaneous Endoscopic Approach (ICD-10-PCS; 2021-05-02)
PROC: 0TT14ZZ Resection of Left Kidney, Percutaneous Endoscopic Approach (ICD-10-PCS; principal; 2021-05-02 07:30)
DX: N28.89 Other specified disorders of kidney and ureter (principal); K86.1 Other chronic pancreatitis; J44.9 Chronic obstructive pulmonary disease, unspecified; F17.210 Nicotine dependence, cigarettes, uncomplicated; Z88.0 Allergy status to penicillin; Z88.8 Allergy status to other drugs, medicaments and biological substances; Z91.041 Radiographic dye allergy status

== ENCOUNTER 2021-05-04 13:20 | Observation (INO) | payer OTHER ==
[~2021-05-04] VITALS: Ht 188 cm; Wt 94.0 kg
[~2021-05-04 13:20] MED LIST changes: +COLA100C5 PO; -LIDOCAINE 1% MDV 20ML VIAL SQ PRN; -LR 1,000 ML IV ONE; +PERCOCET PO; -ceFAZolin SOD 2 GM in IV 1 EA IV ONE
[2021-05-04 15:12] LABS: BASO % 0.3 % (0.0-1.0); EOS # 0.1 10^3/uL (0.0-0.5); HEMATOCRIT 38.1 % (42.0-52.0); HEMOGLOBIN 12.6 g/dl (13.5-17.5); LYMPH # 2.3 10^3/uL (1.5-5.0); LYMPH % 28.7 % (24.0-44.0); MEAN CORPUSCULAR HEMOGLOBIN 30.3 pg (27.0-33.0); MEAN CORPUSCULAR HGB CONC 33.1 g/dl (32.0-36.5); MEAN CORPUSCULAR VOLUME 91.6 fl (80.0-96.0); MONO # 0.6 10^3/uL (0.0-0.8); MONO % 7.9 % (2.0-8.0); NEUTROPHILS # 4.9 10^3/uL (1.5-8.5); NEUTROPHILS % 61.7 % (36.0-66.0); PLATELET COUNT, AUTOMATED 124 10^3/uL (150-450); RED BLOOD COUNT 4.16 10^6/uL (4.30-6.10); WHITE BLOOD COUNT 7.9 10^3/uL (4.0-10.0)
[2021-05-04 15:35] LABS: ERYTHROCYTE SEDIMENTATION RATE 35 mm/hr (0-20)
[2021-05-04 15:37] LABS: ALBUMIN 3.2 GM/DL (3.2-5.2); BILIRUBIN,DIRECT 0.2 MG/DL (0.0-0.2); BILIRUBIN,TOTAL 0.7 MG/DL (0.2-1.0); C REACTIVE PROTEIN QUANTITATIV 7.15 MG/DL (0.00-0.30); TOTAL PROTEIN 6.2 GM/DL (6.4-8.2)
--- NOTE | 2021-05-04 17:57 | REPVR ---
PROCEDURE INFORMATION: Exam: CT Abdomen And Pelvis Without Contrast Exam date and time: 05/04/2021 5:18 PM Age: 65 years old Clinical indication: Other: L nephrectomy, crepitus to abdomen with palpation, pain TECHNIQUE: Imaging protocol: Computed tomography of the abdomen and pelvis without contrast. Radiation optimization: All CT scans at this facility use at least one of these dose optimization techniques: automated exposure control; mA and/or kV adjustment per patient size (includes targeted exams where dose is matched to clinical indication); or iterative reconstruction. COMPARISON: CT ABD W/O FOLL BY WITH CONTRA 03/28/2021 3:14 PM FINDINGS: Lungs: Paraseptal type emphysema at the lung bases. Mediastinal space: Paraesophageal mediastinal emphysema Liver: Multiple low-density liver lesions. The lesions larger than a cm been previously demonstrated to be a cyst. The lesions smaller than 1 cm are unchanged in appearance from previous. Gallbladder and bile ducts: Normal. No calcified stones. No ductal dilation. Pancreas: Normal. No ductal dilation. Spleen: Spleen measures 15 cm in craniocaudal span. Adrenal glands: Normal. No mass. Kidneys and ureters: There has been a left nephrectomy. Air-fluid (2 H) level noted in the left renal fossa measuring 4.7 x 2.8 by 5.2 cm. Three cystic lesions in the right kidney upper pole demonstrated to better advantage on CT scan dated 03/28/2021 and unchanged on this study.. Solid mass measuring 1.3 cm in diameterin the mid right kidney seen on this examination as having a slightly hyperdense rim . No hydronephrosis in the right kidney. Stomach and bowel: Sigmoid colonic diverticulosis. Appendix: No evidence of appendicitis. Intraperitoneal space: There is pneumoperitoneum. Vasculature: Unremarkable. No abdominal aortic aneurysm. Lymph nodes: Unremarkable. No enlarged lymph nodes. Urinary bladder: Unremarkable as visualized. Reproductive: Prostate measures 4.1 x 5 by Bones/joints: Grade 1 spondylolisthesis L5-S1 with 6.6 mm retrolisthesis S1 with respect L5. Chronic bilateral spondylolysis at L5. Soft tissues: Extensive subcutaneous emphysema noted within the soft tissues of the anterior abdominal wall extending into the scrotum inferiorly. Air also dissects into the muscles of the left lateral abdominal wall Umbilical hernia measuring 1.3 cm in diameter containing fat with no signs of strangulation. There is an incisional hernia containing mesenteric fat extending into the left mid abdominal wall IMPRESSION: 1. Extensive subcutaneous emphysema in the anterior abdominal wall dissecting inferiorly into the scrotum and superiorly into the paraesophageal mediastinal fat. 2. Air-fluid level in the left renal fossa with pneumoperitoneum. This may be related to recent nephrectomy.. This could be postoperative seroma but Infection not excluded. 3. Incisional hernia in the left mid anterolateral abdominal wall. The hernia contains mesenteric fat 4. Splenomegaly. 5. Colonic diverticulosis. No diverticulitis seen. 6. Emphysema 7. 1.3 cm solid mass mid right kidney not optimally seen on this unenhanced examination but previously demonstrated to be a small solid renal neoplasm. Follow-up as per patient condition. COMMENTS: Consistent with the [employer]'s Incidental Findings Committee white paper (J Am Makenna Radiol 2018): Any incidental renal lesion less than 1 cm or classified as too small to characterize, or any incidental cystic renal lesion characterized as simple-appearing, is likely benign. No follow-up imaging is recommended for these lesions per consensus recommendations based on imaging criteria. Electronically signed by: Niki Akhtar On 05/04/2021 17:56:54 PM
[2021-05-04] MEDS ORDERED: NS 500 ML IV ONE (18:10)
[2021-05-04] MEDS ORDERED: ONDANSETRON 4MG/2ML VIAL IV ONE ×2 (18:10→18:25)
[2021-05-04] MEDS ORDERED: MORPHINE 4 MG/ML 1ML VIAL/SYRINGE (J2270) IV ONE (18:25)
[2021-05-04] MEDS ORDERED: DOCU100C16 PO (18:41)
[2021-05-04] MEDS ORDERED: OXYC1TAB23 PO (18:41)
[2021-05-04] MEDS ORDERED: HOME MED LIST COMPLETE! XX SCH (18:45)
--- NOTE | 2021-05-04 19:17 | REP ---
INDICATION: post op fever COMPARISON: 04/18/2021. TECHNIQUE: Two views. FINDINGS: There is no acute infiltrate or pneumothorax. Air is seen in the soft tissues of the left chest wall inferiorly. Heart is normal in size. The mediastinal silhouette is unchanged. There are degenerative changes of the spine. IMPRESSION: No acute pulmonary disease. Air is seen in the soft tissues of the inferior left chest wall. <Electronically signed by Ramon Vickers > 05/04/21 [id number]
[2021-05-04 19:40] LABS: RSV AMPLIFICATION NEGATIVE (NEGATIVE)
[2021-05-04] MEDS ORDERED: ONDANSETRON 4MG/2ML VIAL IV PRN (19:45)
[2021-05-04] MEDS ORDERED: DOCUSATE SODIUM 100MG CAPSULE PO PRN (19:45)
[2021-05-04] MEDS ORDERED: ACETAMINOPHEN TAB 650MG DOSE (2X325MG) PO PRN (19:45)
[2021-05-04] MEDS ORDERED: FAMOTIDINE 20 MG TAB PO PRN (19:45)
[2021-05-04 20:31] LABS: CALCIUM LEVEL 8.6 MG/DL (8.8-10.2); CREATININE FOR GFR 1.85 MG/DL (0.70-1.30); GLOMERULAR FILTRATION RATE 39.4 (>49); POTASSIUM SERUM 4.8 MEQ/L (3.5-5.1)
[2021-05-04] MEDS: MORPHINE 2 MG/ML 1ML VIAL (J2270) IV PRN (20:36)
--- NOTE | 2021-05-04 20:49 | HPEPDOC ---
[facility] Medical History & Physical Date of Admission May 04, 2021 Date of Service: May 04, 2021 Attending Physician: NOVA SANON MD History and Physical CHIEF COMPLAINT: abdominal pain HISTORY OF PRESENT ILLNESS: Patient is a 65-year-old male who presents with a 24-hour history of worsening nausea, reflux, and generalized abdominal pain status post robotic left sided total nephrectomy on 05/02/[address] Londono. He was feeling fine after the surgery but at home began having severe reflux that would not go away. On top of that he began to notice that there was air in his scrotum that was worsening with accompanying generalized but predominantly left-sided abdominal pain. He reached out to the urology clinic who advised that he go to the emergency department. In the ED he was found to have signs of pneumoperitoneum on CT scan. Urology, Dr. Brink, was contacted and did not feel there was any urgent need for surgical intervention after reviewing the imaging, but recommended admission for observation, pain control, treatment of a mild SHANNON and that she would follow-up with him in the morning. The hospitalist service was subsequently contacted for admission. PAST MEDICAL HISTORY: Bilateral renal masses CKD stage II follows w/ nephrology ([facility]) Dyslipidemia History of spontaneous pneumothorax GERD Hx of pancreatitis Bilateral renal cysts (follows w/ nephrology) Cystic disease of liver COPD by PFT not on inhalers PAST SURGICAL HISTORY: Left total nephrectomy (2020) Left partial lobectomy status post spontaneous pneumothorax (1984) Cholecystectomy (2019) Bilateral knee surgery SOCIAL HISTORY: [id number] history (0.5-1 pack/day since age 15) Denies alcohol use for the past 9 years Admits to occasional edible cannabis use, denies any heroin, cocaine, PCP or other illicit drugs. Lives at home alone. FAMILY HISTORY: Reviewed, noncontributory ALLERGIES: Please see below. REVIEW OF SYSTEMS: Constitutional: Denies chills, night sweats, or recent unexpected weight change HEENT: Denies headaches, head trauma, no visual changes or eye pain, denies nosebleeds or difficulty swallowing. Cardiovascular: Denies chest pain, palpitations, or orthopnea. Respiratory: Denies cough, wheezing, or shortness of breath GI: Denies diarrhea, or constipation. Admits to abdominal pain, nausea, and reflux, denies vomiting. : Denies pain with urination, frequency, or hematuria Musculoskeletal: Denies joint pain or swelling Neuro/psych: Denies muscle weakness or sensory loss Skin: Denies skin rashes HOME MEDICATIONS: Please see below. PHYSICAL EXAMINATION: VITAL SIGNS: See below GENERAL APPEARANCE: Mildly uncomfortable appearing male laying in bed in no acute distress HEENT: NC, AT, EOMI, no scleral icterus, moist mucous membranes, no pharyngeal erythema. CARDIOVASCULAR: RRR, normal S1-S2. No murmurs, gallops, rubs. LUNGS: CTAB with full breath sounds, no wheezes, crackles, or rhonchi. ABDOMEN: soft abdomen with generalized crepitus throughout the abdomen but most pronounced over surgical incisions which are well healing and not showing any signs of infection. Tenderness to mild palpation, non-distended. Bowel sounds present. Mild eccymosis around periwound. No cva tenderness. EXTREMITIES: No swelling or edema NEUROLOGICAL: No focal or sensory deficits. CN II-XII grossly intact. PSYCHIATRIC: Normal mood and affect LABORATORY DATA: See below. IMAGIN05/04/2021 chest x-ray: "IMPRESSION: No acute pulmonary disease. Air is seen in the soft tissues of the inferior left chest wall." 05/04/2021 CT abdomen/pelvis W/O contrast: "IMPRESSION: 1. Extensive subcutaneous emphysema in the anterior abdominal wall dissecting inferiorly into the scrotum and superiorly into the paraesophageal mediastinal fat. 2. Air-fluid level in the left renal fossa with pneumoperitoneum. This may be related to recent nephrectomy. This could be postoperative seroma but Infection not excluded. 3. Incisional hernia in the left mid anterolateral abdominal wall. The hernia contains mesenteric fat 4. Splenomegaly. 5. Colonic diverticulosis. No diverticulitis seen. 6. Emphysema 7. 1.3 cm solid mass mid right kidney not optimally seen on this unenhanced examination but previously demonstrated to be a small solid renal neoplasm. Follow-up as per patient condition." MICROBIOLOGY: Please see below. Assessment/Plan: Patient is a 65-year-old male who presents on postoperative day 2 with worsening nausea/abdominal pain and found to have pneumoperitoneum on CT scan. #. Acute on chronic renal failure (baseline Cr~1.00) -Consistent w/ pre-renal etiology from poor PO intake in the context of recent surgery with fluid losses. No obstruction on CT scan, UA negative. Urine lytes ordered just in case. -1 L IVF in ED, will hydrate overnight and trend BMP in AM. #. Pneumoperitoneum s/p total nephrectomy -POD-2 w/ SQ emphysema. -Urology consulted, Dr. Brink to see patient in AM, recommendations appreciated. -Will keep patient NPO overnight in the event he ends up requiring surgical intervention. -Oral Percocet and IV morphine for pain control -Zofran for nausea #. liver enzyme elevation -Possibly 2/2 dehydration, continue to monitor. #. Thrombocytopenia -S/p nephrectomy, improved from day prior -continue to monitor. #. Normocytic anemia -S/p nephrectomy, improved from day prior -type/screen done, continue to monitor. #. Dyslipidemia -Continue home statin #. BPH -Continue home flomax #. Reflux -Continue home famotidine #. Hx of cannabis use -States he does this for chronic dysphagia -Will continue to monitor for any signs of CVS DVT prophylaxis: heparin, teds/seqs Disposition: Observation CODE STATUS: Full code Vital Signs Vital Signs Date Time Temp Pulse Resp B/P (MAP) Pulse Ox O2 Delivery O2 Flow Rate FiO2 05/04/21 18:51 18 05/04/21 16:26 98.4 80 123/65 (84) 95 Room Air Laboratory Data Labs 24H Laboratory Tests 2 05/04/21 14:48: Immature Granulocyte % (Auto) 0.4, Neutrophils (%) (Auto) 61.7, Lymphocytes (%) (Auto) 28.7, Monocytes (%) (Auto) 7.9, Eosinophils (%) (Auto) 1.0, Basophils (%) (Auto) 0.3, Neutrophils # (Auto) 4.9, Lymphocytes # (Auto) 2.3, Monocytes # (Auto) 0.6, Eosinophils # (Auto) 0.1, Basophils # (Auto) 0.0, Nucleated Red Blood Cells % (auto) 0.0, Erythrocyte Sedimentation Rate 35H, Lactic Acid Level 0.5, Total Bilirubin 0.7, Direct Bilirubin 0.2, Aspartate Amino Transf (AST/SGOT) 39H, Alanine Aminotransferase (ALT/SGPT) 26, Alkaline Phosphatase 50, C-Reactive Protein, Quantitative 7.15H, Total Protein 6.2L, Albumin 3.2, Albumin/Globulin Ratio 1.1 05/04/21 15:04: POC Glucose (Misc Panel) 91, POC Sodium (Misc Panel) 138, POC Potassium (Misc Panel) 4.8, POC Chloride (Misc Panel) 103, POC Total CO2 (Misc Panel) 27.0, POC Blood Urea Nitrogen (Misc Panel 20, POC Ionized Calcium (Misc Panel) 4.9, POC Creatinine (Misc Panel) 2.1H, POC Hematocrit (Misc Panel) 37.0L 05/04/21 17:40: Urine Color YELLOW, Urine Appearance CLEAR, Urine pH 5.0, Urine Specific [place] 1.011, Urine Protein NEGATIVE, Urine Glucose (UA) NEGATIVE, Urine Ketones TRACEH, Urine Blood 1+H, Urine Nitrite NEGATIVE, Urine Bilirubin NEGATIVE, Urine Urobilinogen 0.2, Urine Leukocyte Esterase NEGATIVE, Urine WBC (Auto) 1, Urine RBC (Auto) 1, Urine Hyaline Casts (Auto) 0, Urine Bacteria (Auto) NEGATIVE, Urine Squamous Epithelial Cells 0, Urine Mucus (Auto) SMALL, Urine Sperm (Auto) 05/04/21 18:51: Coronavirus (COVID-19)(PCR) NEGATIVE, Influenza Type A (RT-PCR) NEGATIVE, Influenza Type B (RT-PCR) NEGATIVE, Respiratory Syncytial Virus (PCR) NEGATIVE CBC/BMP Laboratory Tests 05/04/21 14:48 Microbiology Microbiology 05/04/21 Blood Culture, Received Pending 05/04/21 Blood Culture, Received Pending Home Medications Scheduled Atorvastatin Calcium (Atorvastatin Calcium) 40 Mg Tablet, 40 MG PO DAILY Tamsulosin Hcl (Tamsulosin HCl) 0.4 Mg Capsule, 0.4 MG PO DAILY Scheduled PRN Docusate Sodium (Docusate Sodium) 100 Mg Capsule, 100 MG PO BID PRN for CONSTIPATION Famotidine (Famotidine) 20 Mg Tablet, 20 MG PO DAILY PRN for HEARTBURN Oxycodone HCl/Acetaminophen (Oxycodone-Acetaminophen 5-325) 1 Each Tablet, 1 TAB PO Q6H PRN for PAIN LEVEL 5-10 Allergies Coded Allergies: Penicillins (Verified Allergy, Mild, hives, 04/26/21) Contrast Media (Verified Adverse Reaction, Intermediate, seizure, 04/26/21) propofol (Verified Adverse Reaction, Mild, confusion/anxiety, 04/26/21) GME ATTESTATION GME ATTESTATION My faculty preceptor for this patient encounter was physically present during the encounter and was fully available. All aspects of the patient interview, examination, medical decision making process, and medical care plan development were reviewed and approved by the faculty preceptor. The faculty preceptor is aware and concurs with the plan as stated in the body of this note and will attest to such by his/her cosignature. DANISHA LEVIA DO May 04, 2021 20:49
[2021-05-04] MEDS ORDERED: MIRALAX *UNIT DOSE* 17GM PACKET PO PRN (21:00)
[2021-05-04 21:45] VITALS: BP 132/71
[2021-05-04 22:35] LABS: CREATININE,RANDOM URINE 74.8 MG/DL
[2021-05-04] MEDS ORDERED: PROMETHAZINE INJ 25 MG/ML VIAL (J2550) IV ONE (22:40)
[2021-05-04] MEDS: NICOTINE 14 MG/24 HR TRANSDERMAL TD SCH (23:05)
[2021-05-04] MEDS: PERCOCET 5MG/325MG TAB PO PRN (23:05)
[2021-05-04] MEDS: NS 1,000 ML IV SCH (23:37)
[2021-05-05 06:00] VITALS: BP 133/71
[2021-05-05] MEDS: HEPARIN SOD (PORCINE) 5000UNITS/ML 1ML VIAL/SYRINGE SC SCH ×3 (06:43→21:39)
[2021-05-05] MEDS: MORPHINE 2 MG/ML 1ML VIAL (J2270) IV PRN ×2 (06:44→21:39)
[2021-05-05 06:50] LABS: HEMOGLOBIN 11.9 g/dl (13.5-17.5); MEAN CORPUSCULAR HEMOGLOBIN 30.1 pg (27.0-33.0); MEAN CORPUSCULAR HGB CONC 33.1 g/dl (32.0-36.5); MEAN CORPUSCULAR VOLUME 90.9 fl (80.0-96.0); PLATELET COUNT, AUTOMATED 119 10^3/uL (150-450); RED BLOOD COUNT 3.96 10^6/uL (4.30-6.10); WHITE BLOOD COUNT 6.8 10^3/uL (4.0-10.0)
[2021-05-05 07:16] LABS: CALCIUM LEVEL 8.2 MG/DL (8.8-10.2); CREATININE FOR GFR 1.53 MG/DL (0.70-1.30); POTASSIUM SERUM 4.4 MEQ/L (3.5-5.1)
[2021-05-05] MEDS: NS 1,000 ML IV SCH ×3 (08:56→21:39)
[2021-05-05] MEDS ORDERED: FLUBLOK(EGG FREE)(QUAD)INFLUENZA VACC 0.5ML SYRINGE 18YRS & OLDER IM ONE (09:00)
[2021-05-05] MEDS: NICOTINE 14 MG/24 HR TRANSDERMAL TD SCH (09:35)
[2021-05-05] MEDS: TAMSULOSIN 0.4 MG CAP PO SCH (09:35)
[2021-05-05] MEDS: ATORVASTATIN 20 MG TAB PO SCH (09:35)
--- NOTE | 2021-05-05 11:10 | CR.PDOC ---
General Date of Consultation: May 05, 2021 Referring Provider: NOVA SANON MD Consultation REASON FOR CONSULTATION/CHIEF COMPLAINT: Nausea and vomiting postop day #3 a robotic assisted left adrenal sparing nephrectomy by Dr. Londono on 05/02/2021 HISTORY OF PRESENT ILLNESS: The patient presents to the emergency room postoperative day #3 of a robotic assisted left adrenal sparing nephrectomy by Dr. Nir Londono on 05/02/2021. He comes in with worsening nausea, vomiting, and abdominal pain. He also had severe reflux. On he did notice that he was burping a lot more than normal but he was also passing gas. CT scan of the abdomen and pelvis was done and this showed some mesenteric fat in an incisional hernia but otherwise no significant abnormalities were seen. He did have subcutaneous air which is quite common after laparoscopic surgery. He was found to have some mild acute kidney injury with a creatinine of 1.53. His H&H was stable and his white blood count was normal at 8.8. His T-max was 99.5. Urinalysis showed only 1 white blood cell and 1 red blood cell per high-power field. This morning his subcutaneous crepitus is actually gone. He still has some tenderness over his incisions which is expected. He has no rebound or guarding. He has had no vomiting overnight. ALLERGIES: Please see below. HOME MEDICATIONS: Please see below. PAST MEDICAL HISTORY: Bilateral renal masses CKD stage II follows w/ nephrology ([facility]) Dyslipidemia History of spontaneous pneumothorax GERD Hx of pancreatitis Bilateral renal cysts (follows w/ nephrology) Cystic disease of liver COPD by PFT not on inhalers PAST SURGICAL HISTORY: Left robotic assisted adrenal sparing nephrectomy (2020) Left partial lobectomy status post spontaneous pneumothorax (1984) Cholecystectomy (2019) Bilateral knee surgery FAMILY HISTORY: Noncontributory SOCIAL HISTORY: He does have a [id number] history of smoking and he still smokes half to 1 pack of cigarettes a day since the age of 15 He stopped drinking alcohol 9 days ago He admits to occasional edible cannabis use but denies any other illicit drugs He lives at home alone REVIEW OF SYSTEMS: Constitutional: Denies chills, night sweats, or recent unexpected weight change HEENT: Denies headaches, head trauma, no visual changes or eye pain, denies n osebleeds or difficulty swallowing. Cardiovascular: Denies chest pain, palpitations, or orthopnea. Respiratory: Denies cough, wheezing, or shortness of breath GI: Denies diarrhea, or constipation. Admits to abdominal pain, nausea, and reflux, he did have some vomitting : Denies pain with urination, frequency, or hematuria. He had scrotal swelling from sub q air Musculoskeletal: Denies joint pain or swelling Neuro/psych: Denies muscle weakness or sensory loss Skin: Denies skin rashe PHYSICAL EXAMINATION: VITAL SIGNS: Please see below. GENERAL APPEARANCE: Well-developed well-nourished gentleman in no apparent respiratory distress HEENT: PERRLA EOMI RESPIRATORY: Clear to auscultation percussion CARDIOVASCULAR: Regular rate and rhythm ABDOMEN: Well-healing surgical incisions without any erythema. There is mild tenderness but no rebound or guarding. The crepitus is almost gone today EXTREMITIES: No calf tenderness and no significant cyanosis clubbing or edema NEUROLOGICAL: Nonfocal PSYCHIATRIC: Alert and oriented x3 LABORATORY DATA: Please see below. ASSESSMENT/PLAN: -Postoperative ileus. I recommend waiting to advance the diet until he is really passing gas and moving his bowels. Recommend ambulating around the halls today and sitting up as much as possible -Acute kidney injury with some chronic kidney disease and we will continue to follow this. There is no obstruction on CT scan -Continue home Flomax Vital Signs/I&O Vital Signs Date Time Temp Pulse Resp B/P (MAP) Pulse Ox O2 Delivery O2 Flow Rate FiO2 05/05/21 06:54 18 Room Air 05/05/21 06:36 99.9 05/05/21 06:00 82 133/71 (91) 92 I&O- Last 24 Hours up to 6 AM 05/05/21 06:00 Intake Total 1325 ml Output Total 500 ml Balance 825 ml Laboratory Data Labs 24H Laboratory Tests 2 05/04/21 14:48: Immature Granulocyte % (Auto) 0.4, Neutrophils (%) (Auto) 61.7, Lymphocytes (%) (Auto) 28.7, Monocytes (%) (Auto) 7.9, Eosinophils (%) (Auto) 1.0, Basophils (%) (Auto) 0.3, Neutrophils # (Auto) 4.9, Lymphocytes # (Auto) 2.3, Monocytes # (Auto) 0.6, Eosinophils # (Auto) 0.1, Basophils # (Auto) 0.0, Nucleated Red Blood Cells % (auto) 0.0, Erythrocyte Sedimentation Rate 35H, Anion Gap 4L, Glomerular Filtration Rate 39.4L, Lactic Acid Level 0.5, Calcium Level 8.6L, Total Bilirubin 0.7, Direct Bilirubin 0.2, Aspartate Amino Transf (AST/SGOT) 39H, Alanine Aminotransferase (ALT/SGPT) 26, Alkaline Phosphatase 50, C-Reactive Protein, Quantitative 7.15H, Total Protein 6.2L, Albumin 3.2, Albumin/Globulin Ratio 1.1 05/04/21 15:04: POC Glucose (Misc Panel) 91, POC Sodium (Misc Panel) 138, POC Potassium (Misc Panel) 4.8, POC Chloride (Misc Panel) 103, POC Total CO2 (Misc Panel) 27.0, POC Blood Urea Nitrogen (Misc Panel 20, POC Ionized Calcium (Misc Panel) 4.9, POC Creatinine (Misc Panel) 2.1H, POC Hematocrit (Misc Panel) 37.0L 05/04/21 17:40: Urine Color YELLOW, Urine Appearance CLEAR, Urine pH 5.0, Urine Specific [place] 1.011, Urine Protein NEGATIVE, Urine Glucose (UA) NEGATIVE, Urine Ketones TRACEH, Urine Blood 1+H, Urine Nitrite NEGATIVE, Urine Bilirubin NEGATIVE, Urine Urobilinogen 0.2, Urine Leukocyte Esterase NEGATIVE, Urine WBC (Auto) 1, Urine RBC (Auto) 1, Urine Hyaline Casts (Auto) 0, Urine Bacteria (Auto) NEGATIVE, Urine Squamous Epithelial Cells 0, Urine Mucus (Auto) SMALL, Urine Sperm (Auto) , Urine Random Creatinine 74.8, Urine Random Sodium 104 05/04/21 18:51: Coronavirus (COVID-19)(PCR) NEGATIVE, Influenza Type A (RT-PCR) NEGATIVE, Influenza Type B (RT-PCR) NEGATIVE, Respiratory Syncytial Virus (PCR) NEGATIVE 05/05/21 06:01: Nucleated Red Blood Cells % (auto) 0.0, Anion Gap 5L, Glomerular Filtration Rate 49.0, Calcium Level 8.2L CBC/BMP Laboratory Tests 05/04/21 14:48 05/05/21 06:01 Microbiology Microbiology 05/04/21 Blood Culture, Received Pending 05/04/21 Blood Culture, Received Pending Allergies Coded Allergies: Penicillins (Verified Allergy, Mild, hives, 9/2/21) Contrast Media (Verified Adverse Reaction, Intermediate, seizure, 04/26/21) propofol (Verified Adverse Reaction, Mild, confusion/anxiety, 04/26/21) Home Medications Scheduled Atorvastatin Calcium (Atorvastatin Calcium) 40 Mg Tablet, 40 MG PO DAILY, (Reported) Tamsulosin Hcl (Tamsulosin HCl) 0.4 Mg Capsule, 0.4 MG PO DAILY, (Reported) Scheduled PRN Docusate Sodium (Docusate Sodium) 100 Mg Capsule, 100 MG PO BID PRN for CONSTIPATION, (Reported) Famotidine (Famotidine) 20 Mg Tablet, 20 MG PO DAILY PRN for HEARTBURN, (Reported) Oxycodone HCl/Acetaminophen (Oxycodone-Acetaminophen 5-325) 1 Each Tablet, 1 TAB PO Q6H PRN for PAIN LEVEL 5-10, (Reported) ALEENA JORDAN MD May 05, 2021 11:10
[2021-05-05] MEDS ORDERED: MOM 30ML SUSPENSION UDC PO ONE (11:30)
[2021-05-05] MEDS: PERCOCET 5MG/325MG TAB PO PRN (11:31)
[2021-05-05] MEDS ORDERED: MOM 30ML SUSPENSION UDC PO PRN (12:00)
--- NOTE | 2021-05-05 12:53 | IPNPDOC ---
Text Note Date of Service The patient was seen on 05/05/21. NOTE Subjective: Patient stated with some nausea and mild diffuse abdominal pain. He stated that he continues to have retching. Objective: GENERAL APPEARANCE: NAD HEENT: no scleral icterus, no JVD, EOMI CARDIOVASCULAR: S1S2 LUNGS: CTA ABDOMEN: soft & crepitus around left lateral abdominal wall, surgical wounds of abdomen well-healed. MUSCULOSKELETAL: no cyanosis, no swelling INTEGUMENT: no generalized pallor NEUROLOGICAL: cranial nerve function from 2-12 intact, follows commands, speech not dysarthric Assessment and plan: Patient 65 years old male with past medical history of bilateral renal masses, status post left nephrectomy, GERD, history of pancreatitis, COPD presented to the hospital with increased nausea, retching and generalized abdominal pain. Of note patient did have robotic left-sided nephrectomy on 05/02/[address] Londono Pneumoperitoneum Most likely due to robotic nephrectomy [address] abdomen pelvis showed Extensive subcutaneous emphysema in the anterior abdominal wall dissecting inferiorly into the scrotum and superiorly into the paraesophageal mediastinal fat. 2. Air-fluid level in the left renal fossa with pneumoperitoneum. This may be related to recent nephrectomy.. This could be postoperative seroma Procalcitonin negative Continue to monitor Improved today Most likely retching and esophageal dysmotility attributed to pneumoperitoneum We will introduce clear liquid diet Renal cancer Await biopsy Dr. Londono planning to partial nephrectomy of the right kidney in 3 months Acute on chronic kidney injury Secondary to volume contraction Continue IV fluid Improved GERD Omeprazole 40 mg Hyperlipidemia Continue home statin BPH continue Flomax DVT prophylaxis with heparin VS,Fishbone, I+O VS, Fishbone, I+O Laboratory Tests 05/04/21 14:48 05/05/21 06:01 Vital Signs Date Time Temp Pulse Resp B/P (MAP) Pulse Ox O2 Delivery O2 Flow Rate FiO2 05/05/21 12:01 18 Room Air 05/05/21 06:36 99.9 05/05/21 06:00 82 133/71 (91) 92 I&O- Last 24 Hours up to 6 AM 05/05/21 06:00 Intake Total 1325 ml Output Total 500 ml Balance 825 ml GARY HAY DO May 05, 2021 12:53
[2021-05-05] MEDS ORDERED: OMEPRAZOLE 20 MG CAP PO ONE (13:15)
[2021-05-05 14:00] VITALS: BP 120/60
[2021-05-05 22:00] VITALS: BP 137/68
[2021-05-06] MEDS: PERCOCET 5MG/325MG TAB PO PRN ×2 (02:39→08:42)
[2021-05-06] MEDS: HEPARIN SOD (PORCINE) 5000UNITS/ML 1ML VIAL/SYRINGE SC SCH (05:25)
[2021-05-06 05:45] LABS: HEMATOCRIT 33.2 % (42.0-52.0); HEMOGLOBIN 11.2 g/dl (13.5-17.5); MEAN CORPUSCULAR HEMOGLOBIN 30.4 pg (27.0-33.0); MEAN CORPUSCULAR HGB CONC 33.7 g/dl (32.0-36.5); PLATELET COUNT, AUTOMATED 118 10^3/uL (150-450); RED BLOOD COUNT 3.69 10^6/uL (4.30-6.10); WHITE BLOOD COUNT 5.3 10^3/uL (4.0-10.0)
[2021-05-06 06:00] VITALS: BP 126/64
[2021-05-06 06:14] LABS: CALCIUM LEVEL 8.1 MG/DL (8.8-10.2); CREATININE FOR GFR 1.31 MG/DL (0.70-1.30); GLOMERULAR FILTRATION RATE 58.6 (>49); POTASSIUM SERUM 4.3 MEQ/L (3.5-5.1)
[2021-05-06] MEDS ORDERED: BISACODYL 10 MG SUPP PR ONE (08:30)
[2021-05-06] MEDS ORDERED: BISACODYL 5 MG TAB PO ONE (08:30)
[2021-05-06] MEDS: NICOTINE 14 MG/24 HR TRANSDERMAL TD SCH (08:41)
[2021-05-06] MEDS: TAMSULOSIN 0.4 MG CAP PO SCH (08:41)
[2021-05-06] MEDS: ATORVASTATIN 20 MG TAB PO SCH (08:42)
[2021-05-06] MEDS ORDERED: OMEPRAZOLE 20 MG CAP PO SCH (09:00)
[2021-05-06] MEDS ORDERED: traMADol 50 MG TAB PO PRN (09:35)
[2021-05-06] MEDS ORDERED: TRAM50TA2 PO (11:30)
[2021-05-06] MEDS: NS 1,000 ML IV SCH (11:58)
--- NOTE | 2021-05-06 16:08 | DS.PDOC ---
Discharge Summary General Date of Admission May 04, 2021 at 13:21 Date of Discharge 05/06/21 Discharge Summary PROCEDURES PERFORMED DURING STAY: [None]. ADMITTING DIAGNOSES: Pneumoperitoneum Renal cancer Acute on chronic kidney injury GERD Hyperlipidemia BPH DISCHARGE DIAGNOSES: Pneumoperitoneum Renal cancer Acute on chronic kidney injury GERD Hyperlipidemia BPH COMPLICATIONS/CHIEF COMPLAINT: Spencer (Acute Kidney Injury), Nausea. HISTORY OF PRESENT ILLNESS: Patient is a 65-year-old male who presents with a 24-hour history of worsening nausea, reflux, and generalized abdominal pain status post robotic left sided total nephrectomy on 05/02/[address] Londono. He was feeling fine after the surgery but at home began having severe reflux that would not go away. On top of that he began to notice that there was air in his scrotum that was worsening with accompanying generalized but predominantly left-sided abdominal pain. He reached out to the urology clinic who advised that he go to the emergency department. In the ED he was found to have signs of pneumoperitoneum on CT scan. Urology, Dr. Brink, was contacted and did not feel there was any urgent need for surgical intervention after reviewing the imaging, but recommended admission for observation, pain control, treatment of a mild SPENCER and that she would follow-up with him in the morning. The hospitalist service was subsequently contacted for admission. HOSPITAL COURSE: During the hospital stay the following issue addressed Pneumoperitoneum Most likely due to robotic nephrectomy [address] abdomen pelvis showed Extensive subcutaneous emphysema in the anterior abdominal wall dissecting inferiorly into the scrotum and superiorly into the pa raesophageal mediastinal fat. 2. Air-fluid level in the left renal fossa with pneumoperitoneum. This may be related to recent nephrectomy.. This could be postoperative seroma Procalcitonin negative Improved today Most likely retching and esophageal dysmotility attributed to pneumoperitoneum Renal cancer Await biopsy Dr. Londono planning to partial nephrectomy of the right kidney in 3 months Acute on chronic kidney injury Secondary to volume contraction Improved GERD Omeprazole 40 mg DISCHARGE MEDICATIONS: Please see below. ALLERGIES: Please see below. PHYSICAL EXAMINATION ON DISCHARGE: VITAL SIGNS: Please see below. GENERAL APPEARANCE: NAD HEENT: no scleral icterus, no JVD, EOMI CARDIOVASCULAR: S1S2 LUNGS: CTA ABDOMEN: soft & crepitus around left lateral abdominal wall, surgical wounds of abdomen well-healed. MUSCULOSKELETAL: no cyanosis, no swelling INTEGUMENT: no generalized pallor NEUROLOGICAL: cranial nerve function from 2-12 intact, follows commands, speech not dysarthric LABORATORY DATA: Please see below. IMAGING: See above PROGNOSIS: Fair ACTIVITY: [As tolerated]. DIET: Renal DISPOSITION: 01 Home, Self-Care. ITEMS TO FOLLOWUP ON ON OUTPATIENT: Follow-up with urology DISCHARGE CONDITION: [Stable]. TIME SPENT ON DISCHARGE: 40 minutes. Vital Signs/I&Os Vital Signs Date Time Temp Pulse Resp B/P (MAP) Pulse Ox O2 Delivery O2 Flow Rate FiO2 05/06/21 11:14 18 Room Air 05/06/21 06:00 98.6 65 126/64 (84) 94 I&O- Last 24 Hours up to 6 AM 05/06/21 06:00 Intake Total 1950 ml Output Total 100 ml Balance 1850 ml Laboratory Data Labs 24H Laboratory Tests 2 05/06/21 05:11: Nucleated Red Blood Cells % (auto) 0.0, Anion Gap 4L, Glomerular Filtration Rate 58.6, Calcium Level 8.1L CBC/BMP Laboratory Tests 05/06/21 05:11 Microbiology Microbiology 05/06/21 Blood Culture, Received Pending 05/06/21 Blood Culture, Received Pending 05/04/21 Blood Culture - Preliminary, Resulted 05/04/21 Blood Culture - Preliminary, Resulted No Growth after 48 hours. All Specime... Discharge Medications Scheduled Atorvastatin Calcium (Atorvastatin Calcium) 40 Mg Tablet, 40 MG PO DAILY, (Reported) Tamsulosin Hcl (Tamsulosin HCl) 0.4 Mg Capsule, 0.4 MG PO DAILY, (Reported) Scheduled PRN Docusate Sodium (Docusate Sodium) 100 Mg Capsule, 100 MG PO BID PRN for CONSTIPATION, (Reported) Famotidine (Famotidine) 20 Mg Tablet, 20 MG PO DAILY PRN for HEARTBURN, (Reported) Oxycodone HCl/Acetaminophen (Oxycodone-Acetaminophen 5-325) 1 Each Tablet, 1 TAB PO Q6H PRN for PAIN LEVEL 5-10, (Reported) Tramadol HCl (Tramadol HCl) 50 Mg Tablet, 50 MG PO Q6HP PRN for MODERATE PAIN (PS 5-7) Allergies Coded Allergies: Penicillins (Verified Allergy, Mild, hives, 04/26/21) Contrast Media (Verified Adverse Reaction, Intermediate, seizure, 04/26/21) propofol (Verified Adverse Reaction, Mild, confusion/anxiety, 04/26/21) GARY HAY DO May 06, 2021 16:08
== END 2021-05-06 12:53 | disposition home or self-care (01) ==
LOC: M ED 13:20 → M ED INP 13:21 → ENRESERV 21:24 → M MSPAV 21:35
PROVIDERS: ADMIT Internal Medicine; ATTEND Internal Medicine
DX: K66.8 Other specified disorders of peritoneum (principal); C64.9 Malignant neoplasm of unspecified kidney, except renal pelvis; N17.9 Acute kidney failure, unspecified; R11.0 Nausea; N18.2 Chronic kidney disease, stage 2 (mild); K21.9 Gastro-esophageal reflux disease without esophagitis; E78.5 Hyperlipidemia, unspecified; N40.0 Benign prostatic hyperplasia without lower urinary tract symptoms; J44.9 Chronic obstructive pulmonary disease, unspecified; F17.218 Nicotine dependence, cigarettes, with other nicotine-induced disorders; Z79.899 Other long term (current) drug therapy; Z88.0 Allergy status to penicillin; Z91.041 Radiographic dye allergy status; Z88.8 Allergy status to other drugs, medicaments and biological substances
CPT/HCPCS: 36415; 71046; 74176; 80047; 80048; 80076; 81001; 82570; 83605; 84145; 84300; 85025; 85027; 85652; 86140; 87040; 87077; 87186; 87631; 96361; 96372; 96374; 96375; 96376; 99284; J1644; J2270; J2405

== ENCOUNTER 2021-05-08 11:26 | Emergency (ER) | payer OTHER ==
[~2021-05-08] VITALS: Ht 188 cm; Wt 91.4 kg
[~2021-05-08 11:26] MED LIST changes: +DOCU100C16 PO; +OXYC1TAB23 PO; +TRAM50TA2 PO
[2021-05-08 11:27] VITALS: BP 133/68
== END 2021-05-08 12:13 | disposition left against medical advice (07) ==
LOC: M ED 11:26
DX: Z53.21 Procedure and treatment not carried out due to patient leaving prior to being seen by health care provider (principal)

== ENCOUNTER → 2021-08-30 | Outpatient (CLI) | payer MEDICARE ==
[2021-08-30 14:13] LABS: CREATININE FOR GFR 1.53 MG/DL (0.70-1.30); GLOMERULAR FILTRATION RATE 48.9 (>49); POTASSIUM SERUM 4.7 MEQ/L (3.5-5.1)
[2021-08-30 14:14] LABS: CALCIUM LEVEL 9.2 MG/DL (8.8-10.2)
== END ==
LOC: M LAB 13:24
PROVIDERS: ATTEND Urology
DX: C64.9 Malignant neoplasm of unspecified kidney, except renal pelvis (principal)

== ENCOUNTER → 2021-09-28 | Outpatient (REF) | payer OTHER, MEDICAID | LOC: M LAB REF 12:51 | PROVIDERS: ATTEND Nurse Practitioner Family | DX: N18.2 Chronic kidney disease, stage 2 (mild) (principal) ==

== ENCOUNTER → 2021-10-05 | Outpatient (CLI) | payer MEDICARE, OTHER ==
[~2021-10-05] MED LIST changes: +HYDR-3715 PO
[2021-10-05 10:46] LABS: HEMATOCRIT 39.5 % (42.0-52.0); MEAN CORPUSCULAR HGB CONC 32.9 g/dl (32.0-36.5); PLATELET COUNT, AUTOMATED 140 10^3/uL (150-450); RED BLOOD COUNT 4.34 10^6/uL (4.30-6.10); WHITE BLOOD COUNT 8.6 10^3/uL (4.0-10.0)
[2021-10-05 11:32] LABS: ALBUMIN 3.8 GM/DL (3.2-5.2); BILIRUBIN,TOTAL 0.3 MG/DL (0.2-1.0); CALCIUM LEVEL 9.5 MG/DL (8.8-10.2); CREATININE FOR GFR 1.62 MG/DL (0.70-1.30); GLOMERULAR FILTRATION RATE 45.8 (>49); POTASSIUM SERUM 4.9 MEQ/L (3.5-5.1); TOTAL PROTEIN 6.8 GM/DL (6.4-8.2)
== END ==
LOC: M LAB 09:15
PROVIDERS: ATTEND Urology
DX: Z01.818 Encounter for other preprocedural examination (principal); C64.9 Malignant neoplasm of unspecified kidney, except renal pelvis

== ENCOUNTER → 2021-10-12 | Outpatient (CLI) | payer MEDICARE, OTHER ==
[~2021-10-12] MED LIST changes: -HYDR-3715 PO
== END ==
LOC: M LABSMTC 10:10
PROVIDERS: ATTEND Anesthesiology
DX: Z01.812 Encounter for preprocedural laboratory examination (principal); Z20.822 Contact with and (suspected) exposure to COVID-19

== ENCOUNTER 2021-10-17 09:47 | Inpatient (IN) | payer MEDICARE ==
[~2021-10-17] VITALS: Ht 188 cm; Wt 89.3 kg
[~2021-10-17 09:47] MED LIST changes: +LR 1,000 ML IV ONE; +ceFAZolin SOD 2 GM in IV 1 EA IV ONE
[2021-10-17] MEDS ORDERED: BUPIVACAINE HCL 0.25% 30ML VIAL As Ordered ONE ×2 (11:42→13:08)
[2021-10-17] MEDS ORDERED: MANNITOL 25% 12.5 GM/50 ML VIAL (J2150) As Ordered ONE ×2 (11:42→12:05)
[2021-10-17] MEDS ORDERED: LIDOCAINE 1% SDV 30ML VIAL As Ordered ONE ×2 (11:42→13:08)
[2021-10-17] MEDS ORDERED: PERCOCET 5MG/325MG TAB PO PRN (12:00)
[2021-10-17] MEDS ORDERED: ONDANSETRON 4MG/2ML VIAL IV PRN ×2 (12:00→16:05)
[2021-10-17] MEDS ORDERED: ACETAMINOPHEN TAB 650MG DOSE (2X325MG) PO PRN (12:00)
[2021-10-17] MEDS ORDERED: ceFAZolin 2 GM/D5W 50 ML IV BAG (J0690 PER 500MG) As Ordered ONE (12:05)
[2021-10-17] MEDS ORDERED: ACETAMINOPHEN 1000MG 100ML IV BTL (OFIRMEV) (J0131 PER 10MG) As Ordered ONE (12:39)
[2021-10-17] MEDS ORDERED: ONDANSETRON 4MG/2ML VIAL As Ordered ONE (12:39)
[2021-10-17] MEDS ORDERED: ETOMIDATE INJ 20MG/10ML VIAL As Ordered ONE (12:39)
[2021-10-17] MEDS ORDERED: SUGAMMADEX SODIUM 500 MG/5 ML VIAL (BRIDION) As Ordered ONE (12:39)
[2021-10-17] MEDS ORDERED: ROCURONIUM BROMIDE 50 MG/5 ML VIAL As Ordered ONE (12:39)
[2021-10-17] MEDS ORDERED: dexameTHASONE 4 MG/ML 1ML VIAL (J1100 PER 1MG) As Ordered ONE (12:39)
[2021-10-17] MEDS ORDERED: LIDOCAINE 2% 100MG/5ML SDV (FOR ANES.) As Ordered ONE (12:39)
[2021-10-17] MEDS ORDERED: METOCLOPRAMIDE INJ 10MG/2ML VIAL (J2765 PER 1) As Ordered ONE (12:39)
[2021-10-17] MEDS ORDERED: fentaNYL 250 MCG/5 ML INJECTION As Ordered ONE (12:39)
[2021-10-17] MEDS ORDERED: HYDROmorphone HCL 2MG/ML 1ML VIAL As Ordered ONE (12:39)
[2021-10-17] MEDS ORDERED: MIDAZOLAM INJ 2MG/2ML VIAL (J2250 PER 1MG) As Ordered ONE (12:39)
[2021-10-17] MEDS ORDERED: propofoL 200 MG/20 ML VIAL As Ordered ONE (12:39)
[2021-10-17] MEDS ORDERED: ePHEDrine SULFATE 25 MG/5 ML(5MG/ML) SYRINGE As Ordered ONE ×2 (12:55→13:43)
[2021-10-17] MEDS ORDERED: GLYCOPYRROLATE INJ 0.2 MG/ML 2 ML VIAL As Ordered ONE (13:39)
[2021-10-17] MEDS ORDERED: PHENYLephrine 500MCG 5ML (100MCG/ML) SYRINGE As Ordered ONE (14:51)
[2021-10-17] MEDS ORDERED: fentaNYL 100 MCG/2 ML INJECTION As Ordered ONE ×2 (15:33→15:45)
[2021-10-17] MEDS: fentaNYL 100 MCG/2 ML INJECTION IV PRN ×4 (15:47→16:29)
[2021-10-17] MEDS ORDERED: oxyCODONE 5MG TAB PO PRN (16:05)
[2021-10-17] MEDS ORDERED: LR 1,000 ML IV SCH (16:05)
[2021-10-17 16:26] LABS: HEMOGLOBIN 12.7 g/dl (13.5-17.5); MEAN CORPUSCULAR HEMOGLOBIN 29.8 pg (27.0-33.0); MEAN CORPUSCULAR HGB CONC 32.6 g/dl (32.0-36.5); MEAN CORPUSCULAR VOLUME 91.5 fl (80.0-96.0); PLATELET COUNT, AUTOMATED 135 10^3/uL (150-450); RED BLOOD COUNT 4.26 10^6/uL (4.30-6.10); WHITE BLOOD COUNT 11.5 10^3/uL (4.0-10.0)
[2021-10-17] MEDS: NS 1,000 ML IV SCH (16:29)
[2021-10-17 17:03] LABS: CALCIUM LEVEL 8.9 MG/DL (8.8-10.2); CREATININE FOR GFR 1.72 MG/DL (0.70-1.30); GLOMERULAR FILTRATION RATE 42.7 (>49); POTASSIUM SERUM 4.9 MEQ/L (3.5-5.1)
[2021-10-17 17:04] VITALS: BP 138/72
[2021-10-17 18:00] VITALS: BP 125/65
[2021-10-17 18:25] VITALS: BP 108/74
[2021-10-17] MEDS: DOCUSATE SODIUM 100MG CAPSULE PO SCH (20:34)
[2021-10-17] MEDS: ceFAZolin SOD 1 GM in D5W MINI-BAG PLUS 50 ML IV SCH (20:34)
[2021-10-17] MEDS: TAMSULOSIN 0.4 MG CAP PO SCH (20:34)
[2021-10-17] MEDS: ATORVASTATIN 20 MG TAB PO SCH (20:34)
[2021-10-17] MEDS: PERCOCET 5MG/325MG TAB PO PRN (20:38)
[2021-10-17] MEDS: MORPHINE 4 MG/ML 1ML VIAL/SYRINGE (J2270) IV PRN ×2 (21:38→22:53)
[2021-10-18] MEDS ORDERED: UNRESOLVED CLARIFICATION ENTRY XX SCH (00:01)
[2021-10-18] MEDS: PERCOCET 5MG/325MG TAB PO PRN (00:58)
[2021-10-18 02:00] VITALS: BP 104/60
[2021-10-18] MEDS: MORPHINE 4 MG/ML 1ML VIAL/SYRINGE (J2270) IV PRN ×5 (02:59→21:41)
[2021-10-18] MEDS: ceFAZolin SOD 1 GM in D5W MINI-BAG PLUS 50 ML IV SCH (02:59)
[2021-10-18 06:00] VITALS: BP 101/56
[2021-10-18 07:16] LABS: HEMATOCRIT 32.3 % (42.0-52.0); HEMOGLOBIN 10.8 g/dl (13.5-17.5); MEAN CORPUSCULAR HEMOGLOBIN 29.8 pg (27.0-33.0); MEAN CORPUSCULAR HGB CONC 33.4 g/dl (32.0-36.5); MEAN CORPUSCULAR VOLUME 89.2 fl (80.0-96.0); PLATELET COUNT, AUTOMATED 123 10^3/uL (150-450); RED BLOOD COUNT 3.62 10^6/uL (4.30-6.10); WHITE BLOOD COUNT 8.7 10^3/uL (4.0-10.0)
[2021-10-18 07:28] LABS: CALCIUM LEVEL 8.3 MG/DL (8.8-10.2); CREATININE FOR GFR 1.96 MG/DL (0.70-1.30); GLOMERULAR FILTRATION RATE 36.7 (>49); POTASSIUM SERUM 4.1 MEQ/L (3.5-5.1)
[2021-10-18] MEDS ORDERED: NORCO, ANEXSIA 5/325MG TABLET (HYDROcodone/ACETAMINOPHEN) PO PRN (07:55)
[2021-10-18] MEDS: NS 1,000 ML IV SCH (08:13)
[2021-10-18] MEDS ORDERED: PREVNAR 13 VACCINE SYRINGE IM ONE (09:00)
[2021-10-18] MEDS: DOCUSATE SODIUM 100MG CAPSULE PO SCH ×2 (09:34→20:15)
[2021-10-18] MEDS: NORCO, ANEXSIA 5/325MG TABLET (HYDROcodone/ACETAMINOPHEN) PO PRN ×3 (09:36→17:57)
[2021-10-18 10:00] VITALS: BP 100/56
[2021-10-18 14:00] VITALS: BP 117/64
[2021-10-18] MEDS ORDERED: FAMOTIDINE 20 MG TAB PO PRN (18:05)
[2021-10-18] MEDS: ATORVASTATIN 20 MG TAB PO SCH (20:15)
[2021-10-18] MEDS: TAMSULOSIN 0.4 MG CAP PO SCH (20:15)
[2021-10-18 20:41] VITALS: BP 118/66
[2021-10-18] MEDS ORDERED: MAALOX 30 ML SUSP *UDC PO PRN (21:40)
[2021-10-18 23:45] VITALS: BP 125/68
[2021-10-19 02:00] VITALS: BP 128/85
[2021-10-19] MEDS: NORCO, ANEXSIA 5/325MG TABLET (HYDROcodone/ACETAMINOPHEN) PO PRN ×3 (02:30→11:35)
[2021-10-19 05:37] VITALS: BP 132/83
[2021-10-19] MEDS ORDERED: FUROSEMIDE 20MG/2ML VIAL (J1940) IV ONE (07:00)
[2021-10-19 07:09] LABS: HEMATOCRIT 33.7 % (42.0-52.0); HEMOGLOBIN 11.1 g/dl (13.5-17.5); MEAN CORPUSCULAR HEMOGLOBIN 29.5 pg (27.0-33.0); MEAN CORPUSCULAR HGB CONC 32.9 g/dl (32.0-36.5); MEAN CORPUSCULAR VOLUME 89.6 fl (80.0-96.0); PLATELET COUNT, AUTOMATED 123 10^3/uL (150-450); RED BLOOD COUNT 3.76 10^6/uL (4.30-6.10)
[2021-10-19 07:35] LABS: CALCIUM LEVEL 8.6 MG/DL (8.8-10.2); CREATININE FOR GFR 2.01 MG/DL (0.70-1.30); GLOMERULAR FILTRATION RATE 35.7 (>49); POTASSIUM SERUM 4.2 MEQ/L (3.5-5.1)
[2021-10-19] MEDS: DOCUSATE SODIUM 100MG CAPSULE PO SCH (07:53)
[2021-10-19 09:31] LABS: CREATININE BF 1.9 MG/DL (NOT ESTABLISHED); SOURCE, BODY FLUID CREATININE PERITONEAL
[2021-10-19 10:00] VITALS: BP 112/65
[2021-10-19] MEDS ORDERED: COLA100C5 PO (11:04)
[2021-10-19] MEDS ORDERED: HYDR-3715 PO (11:04)
== END 2021-10-19 12:32 | disposition home or self-care (01) | DRG 657 ==
LOC: M OR 10:26 → M MSPAV 16:48
PROVIDERS: ADMIT Urology; ATTEND Urology
PROC: 8E0W4CZ Robotic Assisted Procedure of Trunk Region, Percutaneous Endoscopic Approach (ICD-10-PCS; 2021-10-17)
PROC: 0TB04ZZ Excision of Right Kidney, Percutaneous Endoscopic Approach (ICD-10-PCS; principal; 2021-10-17 12:00)
DX: C64.1 Malignant neoplasm of right kidney, except renal pelvis (principal); N17.9 Acute kidney failure, unspecified; N28.1 Cyst of kidney, acquired; Z88.0 Allergy status to penicillin; Z88.8 Allergy status to other drugs, medicaments and biological substances; Z91.041 Radiographic dye allergy status; Z79.899 Other long term (current) drug therapy; F17.200 Nicotine dependence, unspecified, uncomplicated; K21.9 Gastro-esophageal reflux disease without esophagitis; N40.0 Benign prostatic hyperplasia without lower urinary tract symptoms; N18.2 Chronic kidney disease, stage 2 (mild); E78.5 Hyperlipidemia, unspecified

== ENCOUNTER → 2021-11-02 | Outpatient (CLI) | payer MEDICARE, OTHER ==
[~2021-11-02] MED LIST changes: +HYDR-3715 PO; -LR 1,000 ML IV ONE; -ceFAZolin SOD 2 GM in IV 1 EA IV ONE
[2021-11-02 14:46] LABS: HEMATOCRIT 35.8 % (42.0-52.0); HEMOGLOBIN 11.8 g/dl (13.5-17.5); MEAN CORPUSCULAR HEMOGLOBIN 29.6 pg (27.0-33.0); MEAN CORPUSCULAR VOLUME 89.9 fl (80.0-96.0); PLATELET COUNT, AUTOMATED 236 10^3/uL (150-450); RED BLOOD COUNT 3.98 10^6/uL (4.30-6.10)
[2021-11-02 15:19] LABS: CALCIUM LEVEL 9.4 MG/DL (8.8-10.2); CREATININE FOR GFR 1.7 MG/DL (0.70-1.30); GLOMERULAR FILTRATION RATE 43.3 (>49); POTASSIUM SERUM 4.8 MEQ/L (3.5-5.1)
== END ==
LOC: M PLALAB 10:04
PROVIDERS: ATTEND Urology
DX: C64.9 Malignant neoplasm of unspecified kidney, except renal pelvis (principal); Z90.5 Acquired absence of kidney

== ENCOUNTER → 2022-02-12 | Outpatient (REF) | payer MEDICARE, OTHER ==
[2022-02-12 17:44] LABS: PERCENT SATURATION 24.7 % (19.7-50.0)
== END ==
LOC: M LAB REF 16:57
PROVIDERS: ATTEND Nurse Practitioner Family
DX: E61.1 Iron deficiency (principal)

== ENCOUNTER → 2022-04-30 | Outpatient (CLI) | payer MEDICARE, OTHER | LOC: M CARPUL 07:43 | PROVIDERS: ATTEND Physician Assistant | DX: J43.1 Panlobular emphysema (principal) ==

== ENCOUNTER → 2022-05-17 | Outpatient (CLI) | payer MEDICARE, OTHER ==
[2022-05-17 15:59] LABS: CALCIUM LEVEL 9.2 MG/DL (8.8-10.2); CREATININE FOR GFR 1.61 MG/DL (0.70-1.30); GLOMERULAR FILTRATION RATE 46.1 (>49); POTASSIUM SERUM 4.3 MEQ/L (3.5-5.1)
== END ==
LOC: M RAD 14:40
PROVIDERS: ATTEND Urology
DX: C64.9 Malignant neoplasm of unspecified kidney, except renal pelvis (principal); Z90.5 Acquired absence of kidney

== ENCOUNTER → 2022-05-28 | Outpatient (CLI) | payer MEDICARE, OTHER ==
[~2022-05-28] MED LIST changes: +ISOVUE-370 76% 100ML VIAL As Ordered ONE
== END ==
LOC: M RAD 09:41
PROVIDERS: ATTEND Physician Assistant
DX: Z12.2 Encounter for screening for malignant neoplasm of respiratory organs (principal); F17.218 Nicotine dependence, cigarettes, with other nicotine-induced disorders; R91.8 Other nonspecific abnormal finding of lung field; C64.9 Malignant neoplasm of unspecified kidney, except renal pelvis; Z90.5 Acquired absence of kidney; J43.9 Emphysema, unspecified; N28.1 Cyst of kidney, acquired
CPT/HCPCS: 71271; 74170; Q9967

== ENCOUNTER → 2022-05-28 | Outpatient (CLI) | payer MEDICARE, OTHER ==
[~2022-05-28] MED LIST changes: -ISOVUE-370 76% 100ML VIAL As Ordered ONE
== END ==
LOC: M RAD 09:39
PROVIDERS: ATTEND Urology
DX: C64.9 Malignant neoplasm of unspecified kidney, except renal pelvis (principal); Z90.5 Acquired absence of kidney; J43.9 Emphysema, unspecified; N28.1 Cyst of kidney, acquired

== ENCOUNTER 2022-08-14 16:10 | Emergency (ER) | payer MEDICARE, OTHER ==
[~2022-08-14] VITALS: Ht 188 cm; Wt 93.2 kg
[2022-08-14 16:19] VITALS: BP 121/64
== END 2022-08-14 19:33 | disposition left against medical advice (07) ==
LOC: M ED 16:10
DX: Z53.21 Procedure and treatment not carried out due to patient leaving prior to being seen by health care provider (principal)

== ENCOUNTER → 2022-08-21 | Outpatient (REF) | payer MEDICARE, OTHER ==
[2022-08-21 13:01] LABS: ALBUMIN 3.5 G/DL (3.2-5.2); BILIRUBIN,TOTAL 0.3 MG/DL (0.3-1.2); CALCIUM LEVEL 9.1 MG/DL (8.3-10.6); CHOLESTEROL RISK RATIO 4.11 (<5); CREATININE FOR GFR 1.46 MG/DL (0.70-1.30); GLOMERULAR FILTRATION RATE 51.4 (>49); HDL CHOLESTEROL 24.8 MG/DL (>40); LDL CHOLESTEROL 53.2 MG/DL (<100); POTASSIUM SERUM 5.1 MMOL/L (3.5-5.1); THYROID STIMULATING HORMONE 1.061 uIU/ML (0.55-4.78); TOTAL PROTEIN 6.5 G/DL (5.7-8.2)
== END ==
LOC: M LAB REF 11:36
PROVIDERS: ATTEND Family Medicine Addiction Medicine
DX: E78.5 Hyperlipidemia, unspecified (principal)

== ENCOUNTER → 2022-11-04 | Outpatient (REF) | payer MEDICARE, OTHER | LOC: M LAB REF 13:10 | PROVIDERS: ATTEND Physician Assistant | DX: L82.1 Other seborrheic keratosis (principal); I78.1 Nevus, non-neoplastic ==

== ENCOUNTER 2022-12-23 08:48 | Day surgery (SDC) | payer MEDICARE, OTHER ==
[~2022-12-23] VITALS: Ht 188 cm; Wt 90.6 kg
[~2022-12-23 08:48] MED LIST changes: +DOXY-444 PO; +FLUT11IN INH; +NS 1,000 ML IV ONE
[2022-12-23] MEDS ORDERED: fentaNYL 100 MCG/2 ML INJECTION As Ordered ONE (09:34)
[2022-12-23] MEDS ORDERED: propofoL 200 MG/20 ML VIAL As Ordered ONE (09:34)
[2022-12-23] MEDS ORDERED: LIDOCAINE 2% 100MG/5ML SDV (FOR ANES.) As Ordered ONE (09:34)
[2022-12-23] MEDS ORDERED: MIDAZOLAM INJ 2MG/2ML VIAL As Ordered ONE (09:54)
[2022-12-23] MEDS ORDERED: KETAMINE HCL 200MG/20ML VIAL As Ordered ONE (09:56)
[2022-12-23] MEDS ORDERED: KETAMINE INJ 500MG/5ML VIAL As Ordered ONE (09:56)
[2022-12-23] MEDS ORDERED: GLYCOPYRROLATE INJ 0.2 MG/ML 2 ML VIAL As Ordered ONE (09:58)
[2022-12-23] MEDS ORDERED: ONDANSETRON 4MG 2ML VIAL As Ordered ONE (10:10)
[2022-12-23 11:13] VITALS: BP 123/74
== END 2022-12-23 11:16 | disposition home or self-care (01) ==
LOC: M OPP 08:48
PROVIDERS: ATTEND Internal Medicine Gastroenterology
DX: Z86.010 Personal history of colon polyps (principal); D12.8 Benign neoplasm of rectum; K64.0 First degree hemorrhoids; K57.30 Diverticulosis of large intestine without perforation or abscess without bleeding; R12 Heartburn; F17.200 Nicotine dependence, unspecified, uncomplicated; Z79.02 Long term (current) use of antithrombotics/antiplatelets; Z79.1 Long term (current) use of non-steroidal anti-inflammatories (NSAID); Z79.2 Long term (current) use of antibiotics; Z79.51 Long term (current) use of inhaled steroids; Z79.899 Other long term (current) drug therapy; Z88.4 Allergy status to anesthetic agent
CPT/HCPCS: 43235; 45380; 88305; J2250; J2405; J3010

== ENCOUNTER → 2023-02-14 | Outpatient (CLI) | payer MEDICARE, OTHER ==
[~2023-02-14] MED LIST changes: -FLUT11IN INH; +FLUT12AE6 INH; -NS 1,000 ML IV ONE
== END ==
LOC: M SOG 08:02
PROVIDERS: ATTEND Orthopaedic Surgery
DX: M25.561 Pain in right knee (principal); M17.11 Unilateral primary osteoarthritis, right knee

== ENCOUNTER → 2023-04-24 | Outpatient (REF) | payer MEDICARE, OTHER ==
[2023-04-24 14:12] LABS: THYROID STIMULATING HORMONE 2.07 uIU/ML (0.55-4.78)
[2023-04-24 14:13] LABS: ALBUMIN 3.7 G/DL (3.2-5.2); BILIRUBIN,TOTAL 0.2 MG/DL (0.3-1.2); CALCIUM LEVEL 8.8 MG/DL (8.3-10.6); CHOLESTEROL RISK RATIO 2.96 (<5); CREATININE FOR GFR 1.57 MG/DL (0.70-1.30); GLOMERULAR FILTRATION RATE 47.3 (>49); HDL CHOLESTEROL 33.4 MG/DL (>40); LDL CHOLESTEROL 44.6 MG/DL (<100); NON-HDL-C 65.6 MG/DL; POTASSIUM SERUM 4.6 MMOL/L (3.5-5.1); TOTAL PROTEIN 6.2 G/DL (5.7-8.2)
== END ==
LOC: M LAB REF 11:59
PROVIDERS: ATTEND Family Medicine Addiction Medicine
DX: E78.5 Hyperlipidemia, unspecified (principal)

== ENCOUNTER → 2023-05-01 | Outpatient (REF) | payer MEDICARE, OTHER ==
[2023-05-01 17:14] LABS: BASO % 0.6 % (0.0-1.0); EOS # 0.1 10^3/uL (0.0-0.5); EOS % 0.8 % (0.0-3.0); HEMOGLOBIN 13.5 g/dl (13.5-17.5); LYMPH # 2.6 10^3/uL (1.5-5.0); LYMPH % 35.8 % (24.0-44.0); MEAN CORPUSCULAR HEMOGLOBIN 30.2 pg (27.0-33.0); MEAN CORPUSCULAR HGB CONC 32.9 g/dl (32.0-36.5); MEAN CORPUSCULAR VOLUME 91.7 fl (80.0-96.0); MONO # 0.5 10^3/uL (0.0-0.8); MONO % 7.3 % (2.0-8.0); NEUTROPHILS % 55.1 % (36.0-66.0); PLATELET COUNT, AUTOMATED 143 10^3/uL (150-450); RED BLOOD COUNT 4.47 10^6/uL (4.30-6.10); WHITE BLOOD COUNT 7.2 10^3/uL (4.0-10.0)
[2023-05-01 17:53] LABS: INR 1.07; PROTHROMBIN TIME 13.6 SECONDS (12.5-14.5)
== END ==
LOC: M LAB REF 16:20
PROVIDERS: ATTEND Family Medicine Addiction Medicine
DX: Z01.818 Encounter for other preprocedural examination (principal)

== ENCOUNTER → 2023-05-08 | Outpatient (CLI) | payer MEDICARE, OTHER ==
[~2023-05-08] MED LIST changes: +ALBU8.5H
== END ==
LOC: M RAD 12:56
PROVIDERS: ATTEND Orthopaedic Surgery
DX: M17.11 Unilateral primary osteoarthritis, right knee (principal); M25.561 Pain in right knee

== ENCOUNTER → 2023-06-02 | Outpatient (CLI) | payer MEDICARE, MEDICAID ==
[~2023-06-02] MED LIST changes: -ALBU8.5H; +ALBU8.5H INH; +PERC10TA26 PO; +XARE10TA PO
== END ==
LOC: M SOG 07:59
PROVIDERS: ATTEND Orthopaedic Surgery
DX: Z47.1 Aftercare following joint replacement surgery (principal); Z96.651 Presence of right artificial knee joint; M25.461 Effusion, right knee; M79.89 Other specified soft tissue disorders

== ENCOUNTER → 2023-06-20 | Outpatient (CLI) | payer MEDICARE, MEDICAID ==
[2023-06-20 12:33] LABS: CALCIUM LEVEL 9.2 MG/DL (8.3-10.6); CREATININE FOR GFR 1.47 MG/DL (0.70-1.30); GLOMERULAR FILTRATION RATE 50.9 (>49); POTASSIUM SERUM 4.3 MMOL/L (3.5-5.1)
== END ==
LOC: M LAB 11:21
PROVIDERS: ATTEND Urology
DX: C64.9 Malignant neoplasm of unspecified kidney, except renal pelvis (principal); Z90.5 Acquired absence of kidney; Z12.5 Encounter for screening for malignant neoplasm of prostate
CPT/HCPCS: 36415; 80048; G0103

== ENCOUNTER → 2023-06-23 | Outpatient (CLI) | payer MEDICARE, MEDICAID | LOC: M RAD 09:18 | PROVIDERS: ATTEND Urology | DX: C64.9 Malignant neoplasm of unspecified kidney, except renal pelvis (principal); Z90.5 Acquired absence of kidney; K76.89 Other specified diseases of liver; Z90.49 Acquired absence of other specified parts of digestive tract; N28.1 Cyst of kidney, acquired; Z12.2 Encounter for screening for malignant neoplasm of respiratory organs; F17.218 Nicotine dependence, cigarettes, with other nicotine-induced disorders; R91.8 Other nonspecific abnormal finding of lung field ==

== ENCOUNTER → 2023-06-23 | Outpatient (CLI) | payer MEDICARE, MEDICAID | LOC: M RAD 09:17 | PROVIDERS: ATTEND Physician Assistant | DX: Z12.2 Encounter for screening for malignant neoplasm of respiratory organs (principal); F17.218 Nicotine dependence, cigarettes, with other nicotine-induced disorders; R91.8 Other nonspecific abnormal finding of lung field ==

== ENCOUNTER → 2023-07-03 | Outpatient (CLI) | payer MEDICARE, MEDICAID | LOC: M SOG 11:03 | PROVIDERS: ATTEND Orthopaedic Surgery | DX: Z47.1 Aftercare following joint replacement surgery (principal); Z96.651 Presence of right artificial knee joint; M25.461 Effusion, right knee ==

== ENCOUNTER → 2023-07-25 | Outpatient (CLI) | payer MEDICARE, MEDICAID | LOC: M SOG 11:43 | PROVIDERS: ATTEND Orthopaedic Surgery | DX: M25.561 Pain in right knee (principal); M25.461 Effusion, right knee ==

== ENCOUNTER → 2023-08-07 | Outpatient (CLI) | payer MEDICARE, MEDICAID | LOC: M SOG 13:59 | PROVIDERS: ATTEND Orthopaedic Surgery | DX: M25.561 Pain in right knee (principal); M25.461 Effusion, right knee; Z96.651 Presence of right artificial knee joint ==

== ENCOUNTER → 2023-11-06 | Outpatient (CLI) | payer MEDICARE, MEDICAID | LOC: M SOG 13:21 | PROVIDERS: ATTEND Orthopaedic Surgery | DX: Z96.651 Presence of right artificial knee joint (principal); Z47.1 Aftercare following joint replacement surgery; M25.461 Effusion, right knee ==

== ENCOUNTER 2023-11-30 01:48 | Observation (INO) | payer MEDICARE, MEDICAID ==
[~2023-11-30] VITALS: Ht 188 cm; Wt 88.6 kg
[2023-11-30 02:36] LABS: BASO % 0.4 % (0.0-1.0); EOS # 0.1 10^3/uL (0.0-0.5); EOS % 0.9 % (0.0-3.0); HEMATOCRIT 39.8 % (42.0-52.0); HEMOGLOBIN 13.3 g/dl (13.5-17.5); LYMPH # 2.9 10^3/uL (1.5-5.0); MEAN CORPUSCULAR HEMOGLOBIN 30.3 pg (27.0-33.0); MEAN CORPUSCULAR HGB CONC 33.4 g/dl (32.0-36.5); MEAN CORPUSCULAR VOLUME 90.7 fl (80.0-96.0); MONO # 0.9 10^3/uL (0.0-0.8); MONO % 7.7 % (2.0-8.0); NEUTROPHILS # 7.2 10^3/uL (1.5-8.5); NEUTROPHILS % 64.5 % (36.0-66.0); PLATELET COUNT, AUTOMATED 140 10^3/uL (150-450); RED BLOOD COUNT 4.39 10^6/uL (4.30-6.10); WHITE BLOOD COUNT 11.2 10^3/uL (4.0-10.0)
[2023-11-30 02:48] LABS: INR 0.97; PROTHROMBIN TIME 12.6 SECONDS (12.5-14.5)
[2023-11-30] MEDS: ONDANSETRON 4MG 2ML VIAL IV ONE (02:48)
[2023-11-30] MEDS: MORPHINE 4 MG/ML 1ML VIAL IV ONE ×2 (02:49→03:58)
[2023-11-30 02:53] LABS: LIPASE 110 U/L (12-53)
[2023-11-30 02:54] LABS: CPK CREATINE PHOSPHOKINASE 96 U/L (46-171)
[2023-11-30 02:55] LABS: ALBUMIN 3.6 G/DL (3.2-5.2); ALKALINE PHOSPHATASE 58 U/L (46-116); ALT/SGPT 21 U/L (7.0-40); AST/SGOT 20 U/L (<34); BILIRUBIN,DIRECT 0.1 MG/DL (<0.4); BILIRUBIN,TOTAL 0.4 MG/DL (0.3-1.2); BLOOD UREA NITROGEN 30 MG/DL (9-23); CALCIUM LEVEL 8.9 MG/DL (8.3-10.6); CARBON DIOXIDE LEVEL 26 MMOL/L (20-31); CHLORIDE LEVEL 109 MMOL/L (98-107); CK-MB VALUE MASS < 1.0 NG/ML (<3.6); CREATININE FOR GFR 1.54 MG/DL (0.70-1.30); GLOMERULAR FILTRATION RATE 48.2 (>49); GLUCOSE, FASTING 91 MG/DL (74-106); MB/CK RELATIVE INDEX 1.04 (< OR =4); POTASSIUM SERUM 4.3 MMOL/L (3.5-5.1); SODIUM LEVEL 139 MMOL/L (136-145); TOTAL PROTEIN 6.4 G/DL (5.7-8.2)
[2023-11-30] MEDS: NS 1,000 ML IV ONE ×2 (03:21→05:37)
[2023-11-30] MEDS ORDERED: ISOVUE-370 76% 100ML VIAL As Ordered ONE (03:30)
[2023-11-30] MEDS ORDERED: CLIN-250 PO (03:44)
[2023-11-30] MEDS ORDERED: ACET500P3 PO (03:44)
[2023-11-30] MEDS ORDERED: HOME MED LIST COMPLETE! XX SCH (03:45)
[2023-11-30 04:09] LABS: CK-MB VALUE MASS 1.4 NG/ML (<3.6)
[2023-11-30 04:10] LABS: MB/CK RELATIVE INDEX 1.81 (< OR =4)
[2023-11-30] MEDS ORDERED: NITROGLYCERIN 0.4MG SUBL TABLET SL PRN (04:55)
[2023-11-30] MEDS ORDERED: ACETAMINOPHEN TAB 650MG DOSE (2X325MG) PO PRN (04:55)
[2023-11-30] MEDS ORDERED: oxyCODONE 5MG TAB PO PRN (05:00)
[2023-11-30] MEDS ORDERED: PILL CUTTER 1 EACH XX PRN (05:15)
[2023-11-30] MEDS ORDERED: ALBUTEROL 90 MCG/ACT 8GM HFA INHALER INH PRN (05:35)
[2023-11-30] MEDS: NS 1,000 ML IV SCH (05:37)
[2023-11-30] MEDS: HEPARIN SOD (PORCINE) 5000UNITS/ML 1ML VIAL/SYRINGE SC SCH (06:00)
[2023-11-30 06:02] LABS: HEMOGLOBIN A1c 5.1 % (4.0-6.0)
[2023-11-30 06:24] LABS: CHOLESTEROL RISK RATIO 3.28 (<5); HDL CHOLESTEROL 29.8 MG/DL (>40); LDL CHOLESTEROL 46.8 MG/DL (<100); NON-HDL-C 68.2 MG/DL
[2023-11-30] MEDS: MORPHINE 4 MG/ML 1ML VIAL IV PRN (07:05)
[2023-11-30] MEDS: MAALOX 30 ML SUSP *UDC PO ONE (08:50)
[2023-11-30] MEDS: ASPIRIN 81MG CHEW TABLET PO SCH (08:50)
[2023-11-30] MEDS: PANTOPRAZOLE 40MG TAB (PROTONIX) PO SCH (08:50)
[2023-11-30] MEDS ORDERED: ONDANSETRON 4MG 2ML VIAL IV PRN (09:00)
[2023-11-30 09:49] LABS: BASO # 0.1 10^3/uL (0.0-0.2); BASO % 0.6 % (0.0-1.0); EOS # 0.1 10^3/uL (0.0-0.5); EOS % 0.9 % (0.0-3.0); HEMATOCRIT 34.9 % (42.0-52.0); HEMOGLOBIN 11.9 g/dl (13.5-17.5); LYMPH # 2.7 10^3/uL (1.5-5.0); LYMPH % 33.2 % (24.0-44.0); MEAN CORPUSCULAR HEMOGLOBIN 30.9 pg (27.0-33.0); MEAN CORPUSCULAR HGB CONC 34.1 g/dl (32.0-36.5); MEAN CORPUSCULAR VOLUME 90.6 fl (80.0-96.0); MONO # 0.8 10^3/uL (0.0-0.8); NEUTROPHILS # 4.5 10^3/uL (1.5-8.5); NEUTROPHILS % 54.7 % (36.0-66.0); PLATELET COUNT, AUTOMATED 106 10^3/uL (150-450); RED BLOOD COUNT 3.85 10^6/uL (4.30-6.10); WHITE BLOOD COUNT 8.2 10^3/uL (4.0-10.0)
[2023-11-30 10:11] LABS: BLOOD UREA NITROGEN 25 MG/DL (9-23); CALCIUM LEVEL 8.2 MG/DL (8.3-10.6); CARBON DIOXIDE LEVEL 23 MMOL/L (20-31); CHLORIDE LEVEL 111 MMOL/L (98-107); GLOMERULAR FILTRATION RATE 53.8 (>49); GLUCOSE, FASTING 84 MG/DL (74-106); POTASSIUM SERUM 4.4 MMOL/L (3.5-5.1); SODIUM LEVEL 140 MMOL/L (136-145)
[2023-11-30] MEDS: CLINDAMYCIN 150MG CAPSULE PO SCH (10:51)
[2023-11-30 10:57] LABS: C REACTIVE PROTEIN QUANTITATIV < 0.40 MG/DL (<1.0)
[2023-11-30 11:11] LABS: ERYTHROCYTE SEDIMENTATION RATE 11 mm/hr (0-20)
[2023-11-30] MEDS ORDERED: MAAL10003 PO (12:22)
[2023-11-30 13:00] VITALS: O2SAT 97
[2023-11-30 13:21] VITALS: BP 111/63; TEMP 97.6
[2023-11-30] MEDS ORDERED: TAMSULOSIN 0.4 MG CAP PO SCH (21:00)
== END 2023-11-30 13:24 | disposition home or self-care (01) ==
LOC: M ED 01:48 → M ED INP 01:49
PROVIDERS: ADMIT Preventive Medicine Undersea and Hyperbaric Medicine; ATTEND Internal Medicine
DX: R07.89 Other chest pain (principal); K21.9 Gastro-esophageal reflux disease without esophagitis; K44.9 Diaphragmatic hernia without obstruction or gangrene; K86.1 Other chronic pancreatitis; R74.01 Elevation of levels of liver transaminase levels; N18.9 Chronic kidney disease, unspecified; F17.210 Nicotine dependence, cigarettes, uncomplicated; F12.10 Cannabis abuse, uncomplicated; J44.9 Chronic obstructive pulmonary disease, unspecified; Z79.899 Other long term (current) drug therapy; Z88.0 Allergy status to penicillin; Z88.8 Allergy status to other drugs, medicaments and biological substances; C64.9 Malignant neoplasm of unspecified kidney, except renal pelvis
CPT/HCPCS: 36415; 71045; 71275; 74177; 80048; 80061; 80076; 82150; 82550; 82553; 83036; 83690; 84484; 85025; 85610; 85652; 86140; 93005; 93041; 93306; 94760; 96374; 96375; 96376; 99285; G0378; J2405; Q9967

== ENCOUNTER 2024-04-17 14:36 | Emergency (ER) | payer MEDICARE, MEDICAID ==
[~2024-04-17] VITALS: Ht 188 cm; Wt 88.7 kg
[~2024-04-17 14:36] MED LIST changes: +ACET500P3 PO; +CLIN-250 PO; +DOXY-440 PO; -DOXY-444 PO; +MAAL10003 PO
[2024-04-17] MEDS: traMADol 50 MG TAB PO ONE (16:52)
[2024-04-17] MEDS: methocarbamoL 750 MG TAB PO ONE (16:52)
[2024-04-17] MEDS: ACETAMINOPHEN 325 MG TAB PO ONE (16:53)
[2024-04-17 17:23] VITALS: BP 134/77; TEMP 97.4; O2SAT 99
[2024-04-17] MEDS ORDERED: TRAM50TA2 PO (17:43)
[2024-04-17] MEDS ORDERED: METH-1165 PO (17:43)
== END 2024-04-17 17:56 | disposition home or self-care (01) ==
LOC: M ED 14:36
DX: S16.1XXA Strain of muscle, fascia and tendon at neck level, initial encounter (principal); S13.4XXA Sprain of ligaments of cervical spine, initial encounter; M54.12 Radiculopathy, cervical region; W22.8XXA Striking against or struck by other objects, initial encounter; Y92.9 Unspecified place or not applicable; Y93.9 Activity, unspecified; Y99.9 Unspecified external cause status; Z85.528 Personal history of other malignant neoplasm of kidney; F17.200 Nicotine dependence, unspecified, uncomplicated; Z79.899 Other long term (current) drug therapy; Z88.0 Allergy status to penicillin; Z88.4 Allergy status to anesthetic agent

== ENCOUNTER → 2024-05-13 | Outpatient (CLI) | payer MEDICARE, MEDICAID ==
[~2024-05-13] MED LIST changes: +METH-1165 PO
== END ==
LOC: M PLARAD 08:19
PROVIDERS: ATTEND Orthopaedic Surgery
DX: M47.812 Spondylosis without myelopathy or radiculopathy, cervical region (principal); M48.02 Spinal stenosis, cervical region; M50.31 Other cervical disc degeneration, high cervical region; M50.321 Other cervical disc degeneration at C4-C5 level; M50.322 Other cervical disc degeneration at C5-C6 level; M50.323 Other cervical disc degeneration at C6-C7 level

== ENCOUNTER → 2024-07-20 | Outpatient (CLI) | payer MEDICARE, MEDICAID ==
[~2024-07-20] MED LIST changes: +ISOVUE-370 76% 100ML VIAL As Ordered ONE
[2024-07-20 13:14] LABS: CALCIUM LEVEL 9.4 MG/DL (8.3-10.6); CREATININE FOR GFR 1.42 MG/DL (0.70-1.30); GLOMERULAR FILTRATION RATE 52.8 (>49); POTASSIUM SERUM 4.7 MMOL/L (3.5-5.1)
== END ==
LOC: M RAD 12:16
PROVIDERS: ATTEND Urology
DX: C64.9 Malignant neoplasm of unspecified kidney, except renal pelvis (principal); Z90.5 Acquired absence of kidney
CPT/HCPCS: 36415; 74170; 80048; Q9967

== ENCOUNTER → 2024-12-13 | Outpatient (CLI) | payer MEDICARE, MEDICAID ==
[~2024-12-13] MED LIST changes: -ISOVUE-370 76% 100ML VIAL As Ordered ONE
== END ==
LOC: M RAD 16:40
PROVIDERS: ATTEND Physician Assistant
DX: Z12.2 Encounter for screening for malignant neoplasm of respiratory organs (principal); F17.218 Nicotine dependence, cigarettes, with other nicotine-induced disorders

== ENCOUNTER → 2025-04-15 | Outpatient (REF) | payer MEDICARE, MEDICAID ==
[~2025-04-15] MED LIST changes: -FLOM0.4C39 PO; +TAMS-18 PO
[2025-04-15 12:56] LABS: ALT/SGPT 22.0 U/L (7.0-40); AST/SGOT 27.0 U/L (<34); CALCIUM LEVEL 8.8 MG/DL (8.3-10.6); CARBON DIOXIDE LEVEL 26.0 MMOL/L (20-31); CHLORIDE LEVEL 108.0 MMOL/L (98-107); CHOLESTEROL LEVEL 93.0 MG/DL (<200); CHOLESTEROL RISK RATIO 2.89 (<5); CREATININE FOR GFR 1.5 MG/DL (0.70-1.30); FREE T4 1.31 NG/DL (0.89-1.76); GLOMERULAR FILTRATION RATE 50.4 (>49); LDL CHOLESTEROL 43.3 MG/DL (<100); NON-HDL-C 60.9 MG/DL; POTASSIUM SERUM 4.9 MMOL/L (3.5-5.1); SODIUM LEVEL 143.0 MMOL/L (136-145); TRIGLYCERIDES LEVEL 88.0 MG/DL (<150)
== END ==
LOC: M LAB REF 11:55
PROVIDERS: ATTEND Family Medicine Addiction Medicine
DX: E78.5 Hyperlipidemia, unspecified (principal)

== ENCOUNTER → 2025-04-15 | Outpatient (CLI) | payer MEDICARE | LOC: M RAD 11:44 | PROVIDERS: ATTEND Nurse Practitioner Family | DX: D49.2 Neoplasm of unspecified behavior of bone, soft tissue, and skin (principal) ==

== ENCOUNTER → 2025-04-18 | Outpatient (REF) | payer MEDICARE, MEDICAID ==
[2025-04-18 16:21] LABS: BASO # 0.0 10^3/uL (0.0-0.2); BASO % 0.5 % (0.0-1.0); EOS # 0.1 10^3/uL (0.0-0.5); EOS % 1.1 % (0.0-3.0); LYMPH # 2.6 10^3/uL (1.5-5.0); LYMPH % 31.5 % (24.0-44.0); MONO # 0.7 10^3/uL (0.0-0.8); MONO % 8.0 % (2.0-8.0); NEUTROPHILS # 4.7 10^3/uL (1.5-8.5); NEUTROPHILS % 58.3 % (36.0-66.0); PLATELET COUNT, AUTOMATED 154 10^3/uL (150-450)
[2025-04-18 16:41] LABS: INR 1.02
== END ==
LOC: M LAB REF 16:14
PROVIDERS: ATTEND Family Medicine Addiction Medicine
DX: Z01.818 Encounter for other preprocedural examination (principal)

== ENCOUNTER 2025-05-01 23:06 | Emergency (ER) | payer MEDICARE, MEDICAID ==
[~2025-05-01] VITALS: Ht 188 cm; Wt 90.9 kg
[2025-05-01] MEDS ORDERED: OXYC-517 (23:12)
[2025-05-02] MEDS ORDERED: ISOVUE-370 76% 100 ML VIAL As Ordered ONE (00:25)
[2025-05-02] MEDS ORDERED: ONDANSETRON 4MG 2ML VIAL IV ONE (00:25)
[2025-05-02] MEDS: ONDANSETRON 4MG 2ML VIAL IV ONE (00:44)
[2025-05-02] MEDS: MORPHINE 2 MG/ML 1 ML VIAL IV ONE ×2 (00:45→03:37)
[2025-05-02] MEDS: NS (Normal Saline) 0.9% 1,000 ML IV ONE (00:45)
[2025-05-02 00:50] LABS: BASO # 0.0 10^3/uL (0.0-0.2); BASO % 0.3 % (0.0-1.0); EOS # 0.1 10^3/uL (0.0-0.5); EOS % 0.8 % (0.0-3.0); LYMPH # 1.6 10^3/uL (1.5-5.0); LYMPH % 18.3 % (24.0-44.0); MONO # 0.8 10^3/uL (0.0-0.8); MONO % 8.7 % (2.0-8.0); NEUTROPHILS # 6.2 10^3/uL (1.5-8.5); NEUTROPHILS % 71.6 % (36.0-66.0); PLATELET COUNT, AUTOMATED 133 10^3/uL (150-450)
[2025-05-02 01:10] LABS: CALCIUM LEVEL 8.8 MG/DL (8.3-10.6); CARBON DIOXIDE LEVEL 29.0 MMOL/L (20-31); CHLORIDE LEVEL 106.0 MMOL/L (98-107); CK-MB VALUE MASS 4.4 NG/ML (<3.6); CPK CREATINE PHOSPHOKINASE 219.0 U/L (46-171); CREATININE FOR GFR 1.29 MG/DL (0.70-1.30); GLOMERULAR FILTRATION RATE 60.4 (>49); MB/CK RELATIVE INDEX 2.0 (< OR =4); POTASSIUM SERUM 4.0 MMOL/L (3.5-5.1); SODIUM LEVEL 141.0 MMOL/L (136-145)
[2025-05-02 02:26] LABS: C REACTIVE PROTEIN QUANTITATIV 4.04 MG/DL (<1.0)
[2025-05-02] MEDS: HYDROMORPHONE HCL 0.5 MG/0.5 ML SYRINGE IV PRN (06:09)
[2025-05-02 06:39] VITALS: BP 142/71; TEMP 98; O2SAT 93
== END 2025-05-02 06:52 | disposition short-term general hospital (02) ==
LOC: M ED 23:06
DX: L03.211 Cellulitis of face (principal); Z79.899 Other long term (current) drug therapy; Z88.0 Allergy status to penicillin; Z88.5 Allergy status to narcotic agent
CPT/HCPCS: 70491; 80047; 80048; 82550; 82553; 83880; 84484; 85025; 86140; 86850; 86900; 86901; 96361; 96374; 96375; 96376; 99285; J1171; J2405; Q9967

== ENCOUNTER 2025-05-13 09:07 | Day surgery (SDC) | payer MEDICARE, MEDICAID ==
[~2025-05-13] VITALS: Ht 188 cm; Wt 86.1 kg
[~2025-05-13 09:07] MED LIST changes: +LIDOCAINE W/EPINEPHrine 1% 20 ML VIAL XX ONE; +OXYC-517
[2025-05-13] MEDS: SODIUM BICARBONATE 8.4% INJ 50MEQ/50ML VIAL XX ONE (10:05)
[2025-05-13] MEDS: LIDOCAINE 1% MDV 20 ML VIAL SC ONE (10:05)
[2025-05-13 10:46] VITALS: BP 119/65; TEMP 98.6; O2SAT 96
== END 2025-05-13 10:59 | disposition home or self-care (01) ==
LOC: M SDC 09:07
PROVIDERS: ATTEND Orthopaedic Surgery Hand Surgery
DX: L72.0 Epidermal cyst (principal); K44.9 Diaphragmatic hernia without obstruction or gangrene; K74.60 Unspecified cirrhosis of liver; E78.5 Hyperlipidemia, unspecified; K21.9 Gastro-esophageal reflux disease without esophagitis; D64.9 Anemia, unspecified; F17.210 Nicotine dependence, cigarettes, uncomplicated; N40.0 Benign prostatic hyperplasia without lower urinary tract symptoms; J44.9 Chronic obstructive pulmonary disease, unspecified; Z88.0 Allergy status to penicillin; Z88.8 Allergy status to other drugs, medicaments and biological substances; Z79.51 Long term (current) use of inhaled steroids; Z79.899 Other long term (current) drug therapy

== ENCOUNTER → 2025-07-13 | Outpatient (REF) | payer MEDICARE, MEDICAID ==
[~2025-07-13] MED LIST changes: -LIDOCAINE W/EPINEPHrine 1% 20 ML VIAL XX ONE
[2025-07-13 15:41] LABS: ALT/SGPT 27.0 U/L (7.0-40); AST/SGOT 29.0 U/L (<34); CALCIUM LEVEL 9.0 MG/DL (8.3-10.6); CARBON DIOXIDE LEVEL 27.0 MMOL/L (20-31); CHLORIDE LEVEL 113.0 MMOL/L (98-107); CHOLESTEROL LEVEL 105.0 MG/DL (<200); CHOLESTEROL RISK RATIO 2.66 (<5); CREATININE FOR GFR 1.42 MG/DL (0.70-1.30); GLOMERULAR FILTRATION RATE 53.5 (>49); LDL CHOLESTEROL 53.0 MG/DL (<100); NON-HDL-C 65.6 MG/DL; POTASSIUM SERUM 4.9 MMOL/L (3.5-5.1); SODIUM LEVEL 144.0 MMOL/L (136-145); TRIGLYCERIDES LEVEL 63.0 MG/DL (<150)
== END ==
LOC: M LAB REF 14:44
PROVIDERS: ATTEND Family Medicine Addiction Medicine
DX: N18.31 Chronic kidney disease, stage 3a (principal)

== ENCOUNTER → 2025-08-04 | Outpatient (CLI) | payer MEDICARE, MEDICAID ==
[~2025-08-04] MED LIST changes: +ISOVUE-370 76% 100 ML VIAL ONE
== END ==
LOC: M PLAIMG 14:00
PROVIDERS: ATTEND Urology
DX: C64.9 Malignant neoplasm of unspecified kidney, except renal pelvis (principal); Z90.5 Acquired absence of kidney; N28.1 Cyst of kidney, acquired; Q63.8 Other specified congenital malformations of kidney
CPT/HCPCS: 74170; Q9967

== ENCOUNTER → 2025-08-09 | Outpatient (CLI) | payer MEDICARE, MEDICAID ==
[~2025-08-09] MED LIST changes: -ISOVUE-370 76% 100 ML VIAL ONE
[2025-08-09 13:36] LABS: CALCIUM LEVEL 8.8 MG/DL (8.3-10.6); CARBON DIOXIDE LEVEL 28.0 MMOL/L (20-31); CHLORIDE LEVEL 109.0 MMOL/L (98-107); CREATININE FOR GFR 1.35 MG/DL (0.70-1.30); GLOMERULAR FILTRATION RATE 56.8 (>49); POTASSIUM SERUM 4.6 MMOL/L (3.5-5.1); SODIUM LEVEL 141.0 MMOL/L (136-145)
== END ==
LOC: M RAD 11:53
PROVIDERS: ATTEND Family Medicine Addiction Medicine
DX: C64.9 Malignant neoplasm of unspecified kidney, except renal pelvis (principal); Z90.5 Acquired absence of kidney